=== PATIENT | male | born 1955 | race Caucasian/White ===

== ENCOUNTER 2017-04-04 07:17 | Emergency (ER) | payer BC ==
[2017-04-04 07:31] VITALS: BP 151/77
--- NOTE | 2017-04-04 08:09 | UC ---
Skin Complaint HPI - HPI Summary HPI Summary: INSECT BITE TO LEFT OUTER ANKLE 4 DAYS AGO. 2 DAYS AGO BECAME RED AND ITCHY. NOT PAINFUL. NO DRAINAGE. - History of Current Complaint Chief Complaint: [facility] Time Seen by Provider: 04/04/17 07:47 Stated Complaint: BUG BITE Hx Obtained From: Patient Onset/Duration: Gradual Onset, Lasting Days, Still Present Skin Exposure Onset/Duration: Days Ago Timing: Constant Onset Severity: Mild Current Severity: Mild Pain Intensity: 0 Pain Scale Used: 0-10 Numeric Location: Other - LEFT ANKLE Character: Pruritus, Redness Aggravating: Touch Alleviating: Nothing Associated Signs & Symptoms: Negative: Fever, Drainage, Tenderness, Red Streaks Related History: Insect Bite/Sting - Allergy/Home Medications Allergies/Adverse Reactions: Allergies Allergy/AdvReac Type Severity Reaction Status Date / Time No Known Allergies Allergy Verified 08/18/15 06:41 Review of Systems Constitutional: Negative Skin: Other - REDNESS Respiratory: Negative Cardiovascular: Negative Gastrointestinal: Negative All Other Systems Reviewed And Are Negative: Yes PMH/Surg Hx/FS Hx/Imm Hx Cardiovascular History: Hypertension - 2 - Surgical History Surgical History: Yes Surgery Procedure, Year, and Place: Gastric Sleeve, 10/2015. Right knee surgery X2 1994. LAP NGUYEN 2010 [facility]. TONSILLECTOMY A CHILD. Right eye surgery- for drainage. - Family History Known Family History: Positive: Hypertension - Social History Alcohol Use: Rare Substance Use Type: None Smoking Status (MU): Never Smoked Tobacco - Immunization History Most Recent Tetanus Shot: thinks is up to date Physical Exam Triage Information Reviewed: Yes Appearance: Well-Appearing, No Pain Distress, Well-Nourished Vital Signs: Initial Vital Signs Temp 97.8 F 04/04/17 07:25 Pulse 58 04/04/17 07:25 Resp 18 04/04/17 07:25 BP 151/77 04/04/17 07:25 Pulse Ox 99 04/04/17 07:25 Vital Signs Reviewed: Yes Eyes: Positive: Conjunctiva Clear ENT: Positive: Hearing grossly normal Neck: Positive: Supple Respiratory: Positive: No respiratory distress, No accessory muscle use Cardiovascular: Positive: Pulses Normal Abdomen Description: Positive: Soft Musculoskeletal: Positive: No Edema Neurological: Positive: Alert Psychological: Positive: Age Appropriate Behavior Skin: Positive: Other - 3CM X 3.5CM AREA OF ERYTHEMA LEFT LATERAL ANKLE WITH CENTRAL PUNCTUM. NO DRAINAGE. NOT TENDER. Course/Dx - Diagnoses Provider Diagnoses: LOCAL ALLERGIC REACTION TO INSECT BITE - LEFT ANKLE Discharge - Discharge Plan Condition: Stable Disposition: HOME Patient Education Materials: General Allergic Reaction (ED) Referrals: Arian COLLINS,Jose Silva [Primary Care Provider] - If Needed Additional Instructions: AT PRESENT NO INDICATION OF INFECTION. LOOKS MORE LIKE A LOCAL ALLERGIC REACTION FROM THE INSECT BITE. OKAY TO USE TOPICAL OTC HYDROCORTISONE A FEW TIMES A DAY NEEDED FOR ITCHING. CALL ME IF THE REDNESS EXPANDS OR IF IT BECOMES MORE PAINFUL. I AM HERE SUNDAY AND SUNDAY AFTERNOON/EVENING AND LIKELY SUNDAY MORNING. USE DAILY MOISTURIZING LOTION AVOID HOT WATER TAKE OTC ANTIHISTAMINE DAILY (CLARITIN (LORATADINE), ZYRTEC (CETIRIZINE) OR ALY (FEXOFENADINE) IN THE MORNING, BENADRYL AT NIGHT) DO NOT SCRATCH KEEP COOL, CLEAN AND DRY
== END 2017-04-04 08:26 | disposition home or self-care (01) ==
LOC: UCEAST 07:17
DX: T63.481A Toxic effect of venom of other arthropod, accidental (unintentional), initial encounter (principal); L53.0 Toxic erythema
CPT/HCPCS: 99211; G0463

== ENCOUNTER 2018-06-12 06:48 | Day surgery (SDC) | payer BC ==
[~2018-06-12 06:48] MED LIST: Acetaminophen TAB* 325 MG PO PRN; Buffered Lidocaine 0.9% SYRIN* 5 ML/SYR SYRINGE INTRADERM ONE; mitoMYcin PWD* 0.2 MG in Sterile Water for Inj* 1 ML OPHTHALMIC SCH
[2018-06-12] MEDS ORDERED: Proparacaine 0.5% OPHTH.SOL* 15 ML BTL ONE (08:01)
[2018-06-12] MEDS ORDERED: Lidocaine 1%* 5 ML VIAL ONE (08:01)
[2018-06-12] MEDS ORDERED: Povidone Iodine 5% OPTH* 30 ML BTL ONE (08:01)
[2018-06-12] MEDS ORDERED: Neomycin/Polymy/Dex OPTH.SUSP* MAXITROL 0.1% 5 ML ONE (08:01)
[2018-06-12] MEDS ORDERED: Lidocaine 2% EPI 1:200000 MPF*10-20 ML VIAL ONE (08:01)
[2018-06-12] MEDS ORDERED: Midazolam* 1 MG/ML 2 ML VIAL (2 MG) ONE ×2 (08:07→09:06)
[2018-06-12 09:35] VITALS: BP 142/80
--- NOTE | 2018-06-12 13:11 | OP ---
OPERATIVE REPORT: DATE OF OPERATION: 06/12/18 DATE OF : 53 SURGEON: Tristen Caal MD ANESTHESIA: Local MAC. PRE-OP DIAGNOSIS: Uncontrolled glaucoma, right eye. POST-OP DIAGNOSIS: Uncontrolled glaucoma, right eye. OPERATIVE PROCEDURE: Xen implant right eye. COMPLICATIONS: None. DESCRIPTION OF PROCEDURE: The patient was prepped and draped in the usual sterile fashion around the right eye. Lid speculum was placed. Topical 2% lidocaine with epinephrine was placed on the cornea . A paracentesis incision was made at the 10 o'clock position with a green blade. 1% nonpreserved i ntracameral lidocaine was injected in the anterior chamber, then filled with Healon. A 2.2 mm kerato me was used to make a clear corneal incision at the 7 o'clock position. A marking was made 3 mm post erior to the superior limbus and then mitomycin-C 0.2 mg/mL 0.1 mL injected subconjunctivally. A Xen implant was placed at the 1 o'clock position without difficulty and then the anterior chamber was ir rigated with BSS. Wound was checked and found to be water tight. Topical Maxitrol was given. [id number]/[facility] #: [id number]
== END 2018-06-12 09:50 | disposition home or self-care (01) ==
LOC: OREAST 06:48
PROVIDERS: ATTEND Specialist
DX: H40.131 Pigmentary glaucoma, right eye (principal); I10 Essential (primary) hypertension; E11.9 Type 2 diabetes mellitus without complications; G47.33 Obstructive sleep apnea (adult) (pediatric); E66.9 Obesity, unspecified
CPT/HCPCS: A9270-GY; C1725; J2250; J9280

== ENCOUNTER 2019-02-19 12:55 | Observation (INO) | payer BC ==
--- NOTE | 2019-02-19 13:21 | ED ---
HPI Chest Pain - HPI Summary HPI Summary: Pt is a 64 y/o M presenting to the ED brought in by EMS with a chief complaint of chest pain onset this morning around 1100. The pt was pushing a lawnmower up an incline when he had two brief bursts of chest pain in the middle of his chest that did not radiate, lasting 8-12 seconds in total. He called his motor scooter mechanic in [place] who recommended coming into his office for an EKG, but he did not feel comfortable driving all the way back. He came here instead, as he works in [place]. Notable hx includes four cardiac stents placed in September of 2018 that he has been going to cardiac rehab for, HTN, and NIDDM. He was given NTG and ASA by EMS. - History of Current Complaint Chief Complaint: EDChestPainROMI Time Seen by Provider: 02/19/19 13:04 Hx Obtained From: Patient Onset/Duration: Started Hours Ago, Resolved Timing: Intermittent, Lasting Seconds Initial Severity: Moderate Current Severity: None Pain Intensity: 0 Pain Scale Used: 0-10 Numeric Chest Pain Location: Mid Sternal Chest Pain Radiates: No Character: Other: - "bursts" Aggravating Factor(s): Exertion Alleviating Factor(s): Rest Associated Signs and Symptoms: Positive: Chest Pain. Negative: Shortness of Breath - Allergy/Home Medications Allergies/Adverse Reactions: Allergies Allergy/AdvReac Type Severity Reaction Status Date / Time No Known Allergies Allergy Verified 06/12/18 07:03 Home Medications: Home Medications Aspirin EC TAB* [Ecotrin EC Low Dose 81 MG*] 81 mg PO QAM 02/19/19 [History Confirmed 02/19/19] Atorvastatin* [Lipitor*] 40 mg PO QPM 02/19/19 [History Confirmed 02/19/19] Citalopram TAB* [CeleXA TAB*] 20 mg PO QAM 02/19/19 [History Confirmed 02/19/19] Clopidogrel TAB* [Plavix TAB*] 75 mg PO QAM 02/19/19 [History Confirmed 02/19/19 ] Glimepiride (NF) 1 mg PO QAM 02/19/19 [History Confirmed 02/19/19] Losartan TAB* [Cozaar TAB*] 25 mg PO QPM 02/19/19 [History Confirmed 02/19/19] Metoprolol Succinate XL TAB* [Toprol XL TAB*] 25 mg PO QAM 02/19/19 [History Confirmed 02/19/19] amLODIPine TAB* [Norvasc 5 mg TAB*] 5 mg PO QAM 02/19/19 [History Confirmed 06/02] PMH/Surg Hx/FS Hx/Imm Hx Previously Healthy: No Endocrine/Hematology History: Reports: Hx Diabetes Denies: Hx Thyroid Disease Cardiovascular History: Reports: Hx Coronary Artery Disease, Hx Hypertension - WELL CONTROLLED, Other Cardiovascular Problems/Disorders - 4 stents placed 2017 Respiratory History: Reports: Hx Sleep Apnea Denies: Hx Asthma, Hx Chronic Obstructive Pulmonary Disease (COPD) GI History: Denies: Hx Ulcer History: Reports: Hx Kidney Stones - YEARS AGO- NO PROBLEM SINCE Sensory History: Reports: Hx Contacts or Glasses - cheaters for reading, Hx Glaucoma Denies: Hx Cataracts, Hx Hearing Aid Opthamlomology History: Reports: Hx Contacts or Glasses - cheaters for reading, Hx Glaucoma Denies: Hx Cataracts Psychiatric History: Reports: Hx Anxiety, Hx Depression - Cancer History Hx Chemotherapy: No - Surgical History Surgery Procedure, Year, and Place: Gastric Sleeve, 10/2015. Right knee surgery X2 1994. LAP NGUYEN 2009 [facility]. TONSILLECTOMY A CHILD. Right eye surgery- for drainage. Hx Anesthesia Reactions: No Infectious Disease History: No Infectious Disease History: Denies: Hx Clostridium Difficile, Hx Hepatitis, Hx Human Immunodeficiency Virus (HIV), Hx of Known/Suspected MRSA, Hx Shingles, Hx Tuberculosis, Hx Known/ Suspected VRE, Hx Known/Suspected VRSA, History Other Infectious Disease, Traveled Outside the [place] in Last 30 Days - Family History Known Family History: Positive: Hypertension - Social History Alcohol Use: Rare Hx Substance Use: No Substance Use Type: Reports: None Hx Tobacco Use: No Smoking Status (MU): Never Smoked Tobacco Review of Systems Positive: Chest Pain Negative: Shortness Of Breath All Other Systems Reviewed And Are Negative: Yes Physical Exam - Summary Physical Exam Summary: GENERAL: Patient is a well-developed and nourished male who is lying comfortable in the stretcher. Patient is not in any acute respiratory distress. HEAD AND FACE: Normocephalic EYES: PERRLA, EOMI x 2. EARS: Hearing grossly intact. MOUTH: Oropharynx within normal limits. NECK: Supple, trachea is midline, no adenopathy, no JVD, no carotid bruit. CHEST: Symmetric, no tenderness at palpation LUNGS: Clear to auscultation bilaterally. No wheezing or crackles. CVS: Regular rate and rhythm, S1 and S2 present, no murmurs or gallops appreciated. ABDOMEN: Soft, non-tender. Bowel sounds are normal. No abnormal abdominal pulsations. EXTREMITIES: Full ROM in all major joints, no edema, no cyanosis or clubbing. NEURO: Alert and oriented x 3. No acute neurological deficits. Speech is normal and follows commands. SKIN: Dry and warm Triage Information Reviewed: Yes Vital Signs On Initial Exam: Initial Vitals Temp Pulse Resp BP Pulse Ox 98 F 65 18 144/80 100 02/19/19 12:59 02/19/19 12:59 02/19/19 12:59 02/19/19 12:59 02/19/19 12:59 Vital Signs Reviewed: Yes Diagnostics - Vital Signs Vital Signs Temp Pulse Resp BP Pulse Ox 02/19/19 12:59 98 F 65 18 144/80 100 - Laboratory Result Diagrams: 02/20/19 06:00 02/20/19 06:00 Lab Statement: Any lab studies that have been ordered have been reviewed, and results considered in the medical decision making process. - EKG 1303 Cardiac Rate: Bradycardia - 49bpm EKG Rhythm: Sinus Bradycardia ST Segment: Normal Ectopy: None Summary of EKG Findings: EKG at 1303 shows sinus bradycardia at 49bpm with no ischemic changes. Chest Pain Course/Dx - Course Course Of Treatment: Pt is a 64 y/o M presenting to the ED brought in by EMS for exertional chest pain lasting about 8-12 seconds in the mid-sternal area that did not radiate and is described as bursts. He denies current CP or SOB. Notable hx includes four cardiac stents placed in September of 2018 that he has been going to cardiac rehab for, HTN, and NIDDM. He was given NTG and ASA by EMS. EKG at 1303 shows sinus bradycardia at 49bpm with no ischemic changes. At 1348, I spoke with Dr. Buckley who will be accepting the pt to [facility] with a dx of chest pain. The pt is stable and agreeable with this plan. - Diagnoses Provider Diagnoses: Chest pain Discharge - Sign-Out/Discharge Documenting (check all that apply): Patient Departure - Discharge Plan Condition: Stable Disposition: ADMITTED TO [facility] - Billing Disposition and Condition Condition: STABLE Disposition: Admitted to [facility] - Attestation Statements Document Initiated by Jarrod: Yes Documenting Scribe: Mony Jaimes Provider For Whom Jarrod is Documenting (Include Credential): Sherrell Katz MD. Scribe Attestation: IMony, scribed for Sherrell Katz MD. on 02/20/19 at 1117. Scribe Documentation Reviewed: Yes Provider Attestation: The documentation as recorded by the Mony rodrigues accurately reflects the service I personally performed and the decisions made by me, Tammie Katz MD. Status of Scribe Document: Viewed Consult Consult: [id number] - I spoke with Dr. Buckley who will be admitting the pt to [facility] with a dx of chest pain.
--- OUTSIDE RECORDS SUMMARY | 2019-02-19 13:22 | XMS REPORT | Continuity of Care Document ---
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 Date Identification Numbers Payment Provider Subscriber Effective: 2011 Policy Number: [id number] [facility] Ronak Crocker Group Number: [id number] [address] [address] Group Name: [facility] [place] [address] PayID: [id number] Advance Directives Description No Information Available Problems Active Problems Provider Date Benign essential hypertension Jose Don MD Onset: 03/29/2011 Type 2 diabetes mellitus Jose Don MD Onset: 05/26/2014 Contusion of trunk Jose Don MD Onset: 05/26/2014 Essential hypertension Jose Don MD Onset: 10/25/2015 Impending infarction Bayron Ashley MD Onset: 08/28/2018 Pure hypercholesterolemia Bayron Ashley MD Onset: 08/28/2018 Carotid artery occlusion Bayron Ashley MD Onset: 08/28/2018 Obstructive sleep apnea syndrome Bayron Ashley MD Onset: 08/28/2018 Body mass index 30+ - obesity Bayron Ashley MD Onset: 08/28/2018 Hypertensive heart disease without heart Bayron Ashley MD Onset: 09/17/2018 failure 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/04/2018 coronary artery without angina pectoris Family history of ischemic heart disease and Vita Torrez NP Onset: 10/04 other diseases of the circulatory system Chest pain Vita Torrez NP Onset: 10/04/2018 Patient post percutaneous transluminal Vita Torrez NP Onset: 10/04/2018 coronary angioplasty Family History Date Family Member(s) Observation Comments Father 192 as of 01/22/2009 Father MA Father Hypertension Mother 1925 as of 01/22/2009 Mother Hypertension Mother Stroke Siblings Siblings: one brother and one sister in good high bp health, brother may have Social History Type Date Description Comments Sex Unknown 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 PHYSICAL THERAPIST AIDE Tablets Atorvastatin Calcium 1 by mouth every 30tabs Vita Torrez, 10/04/2018 40mg night PHYSICAL THERAPIST AIDE Tablets Clopidogrel Bisulfate one tablet daily. 30tabs Vita Torrez, 2017 PHYSICAL THERAPIST AIDE 75mg Tablets Amlodipine Besylate 1 by mouth every 30tabs Bayron Ashley, 09/17/2018 5mg day Tablets Adult Aspirin Regimen Bayron Ashley, 08/28/2018 81mg Tablets Metoprolol Succinate 1 by mouth every 30tabs Bayron Ashley, 08/28/2018 ER day MD 25mg Tablets ER 24HR Nitroglycerin 1 sl as needed 25tabs Bayron Ashley, 08/28/2018 0.4mg chest pain may MD Tablets Sub repeat every 5 minutes x 2. if no relief then go to er Glimepiride take 1 tablet by 30tabs Arian, 08/20/2018 1mg Tablets mouth once daily MD Jose Bipap bipap 19/03tga2p 1units G47.33 Josias Skelton, 08/12/2017 Device with MD [place] heated humidity and related supplies, ellie 99mos Citalopram take 1 tablet by 90tabs F33.1 Arian, 01/22/2008 Hydrobromide mouth once daily MD Jose 20mg Tablets Combigan Unknown 0.2-0.5% Solution History Medications Oseltamivir one by mouth every 10caps J09.x2 Arian 12/30/2018 - Phosphate day MD Jose 01/04/2019 75mg Capsules Atorvastatin 1 by mouth every day 30tabs Bayron Ashley, 08/28/2018 - Calcium 10/04/2018 20mg Tablets Bipap New Bipap 15/92suy0i 1units G47.33 Josias Skelton, 06/14/2017 - Device with modejustyn heated 05/15/2018 humidity and related supplies, ellie 99mos Dymista 1 spray each nostril 69gm Josias Skelton 04/10/2017 - twice a day 12/05/2018 137-50mcg/Act Suspension Lisinopril 1 by mouth every day 30tabs I10 Arian 12/28/2015 - 5mg MD Jose 03/07/2016 Tablets Lisinopril 1 by mouth every day 30tabs I10 Arian 11/26/2015 - 10mg MD Jose 12/28/2015 Tablets Zostavax .5 milliliters sub 1units V07.2 Arian 10/25/2015 - every MD Jose 10/24/2015 41406Lcj/0.65ML Solution Rec Azopt one drop once a day Arian 10/25/2015 - 1% Suspension in rt eye MD Jose 12/05/2018 Diamox Sequels 1 by mouth 4 times a Arian 08/16/2015 - day MD Jose 10/15/2015 500mg Caps ER 12HR Zostavax .5 milliliters sub 1units V07.2 Arian 02/02/2015 - every MD Jose 08/15/2015 61118Cea/0.65ML Solution Rec Metformin HCL ER 1 po qd 30tabs Arian 2014 - MD Jose 12/13/2013 500mg Tablets ER 24HR Bipap bipap 15/22juq22 G47.33 Josias Skelton, 07/23/2012 - with heated 03/20/2017 humidification and related supplies. patient did not tolerate cpap. ellie:99mos Bactrim DS 1 po bid 20tabs 682.6 Arian 07/21/2011 - MD Jose 07/31/2011 800-160mg Tablets Doxycycline Hyclate 1 po bid with food 20caps 682.6 Arian, 07/17/2011 - MD Jose 07/21/2011 100mg Capsules Keflex 1 po tid 30caps 706.2 Arian, 04/21/2011 - 500mg MD Jose 05/01/2011 Capsules Lisinopril take 1 tablet by 90tabs I10 Arian 04/21/2011 - 20mg mouth once daily MD Jose 11/26/2015 Tablets Naproxen 1 po bid prn with 60tabs 841.9 Arian 05/06/2010 - 500mg food MD Jose 06/05/2010 Tablets Please Obtain Please obtain 1units 327.23 Nely Peterson, 05/28/2009 - Compliance Data patients Compliance PHYSICAL THERAPIST AIDE 09/14/2009 Data, to evaluate for possible leak issues. 780.50 Lisinopril Take 1 Tablet 90tabs 401.1 Arian 01/16/2007 - 10mg By Mouth Once MD Jose 04/21/2011 Tablets Daily Norflex 1 po qhs 30tabs Arian 08/02/2003 - 100mg Tablets MD Jose 10/15/2006 Tylenol W/Codeine One To Two 20tabs 786.2 Arian, 11/20/2002 - #3 Q4-6H prn With MD Edwina 11/28/2002 Tablets Small Snack To Lessen Nausea Naprosyn 1 po bid with 30units 847.2 Arian 06/18/2002 - 500mg food prn pain MD Jose 10/15/2006 Norflex 1 bid prn 20units 847.2 Arian 06/18/2002 - Muscle Relaxer MD Jose 07/08/2002 Lamisil Tincture 3 Crushed In 1 1units 681.11 Arian 06/18/2002 - 0Z Fungoid MD Jose 09/14/2009 250mg Tincture;2 Drops To Nail bid Latanoprost 1 drop in each Unknown - 0.005% eye at bedtime 12/05/2018 Solution Immunizations CPT Code Status Date Vaccine Lot # [id number] Given 08/09/2018 Influenza Vac, Quadrivalent, Split, 0.5mL Dosage, [id number] Im Use [id number] Given 12/23/2015 Zoster (Zostavax) 41657 Given 08/16/2015 Influenza Vac, Quadrivalent, Split, 0.5mL Dosage, [id number] Im Use 59510 Given 02/02/2015 Tdap (Boostrix)tetanus, diptheria toxoid & [id number] acellular pertussis Vital Signs Date Vital Result Comment 02/11/2019 8:08am Weight 264.00 lb Heart Rate 63 /min BP Systolic 132 mmHg BP Diastolic 60 mmHg Height 72.5 inches 6'0.50" BMI (Body Mass Index) 35.3 kg/m2 12/30/2018 11:34am Weight 270.00 lb BP Systolic 118 mmHg BP Diastolic 60 mmHg Height 73 inches 6'1" BMI (Body Mass Index) 35.6 kg/m2 12/05/2018 2:06pm Weight 278.00 lb Heart Rate 68 /min BP Systolic 130 mmHg BP Diastolic 62 mmHg Height 73 inches 6'1" BMI (Body Mass Index) 36.7 kg/m2 10/29/2018 2:44pm Body Temperature 96.8 F Weight 296.00 lb Heart Rate 66 /min BP Systolic 142 mmHg BP Diastolic 80 mmHg Height 73 inches 6'1" O2 % BldC Oximetry 97 % BMI (Body Mass Index) 39.0 kg/m2 10/04/2018 9:30am Weight 292.00 lb Heart Rate 64 /min reg BP Systolic 146 mmHg BP Diastolic 86 mmHg BP Systolic Recheck 132 mmHg BP Diastolic Recheck 76 mmHg Respiratory Rate 16 /min Height 73 inches 6'1" BMI (Body Mass Index) 38.5 kg/m2 09/17/2018 7:29am Weight 296.00 lb Heart Rate 80 /min BP Systolic 178 mmHg BP Diastolic 88 mmHg BP Systolic Recheck 144 mmHg BP Diastolic Recheck 84 mmHg Height 73 inches 6'1" BMI (Body Mass Index) 39.0 kg/m2 08/28/2018 1:05pm Weight 294.00 lb Heart Rate 76 /min BP Systolic 144 mmHg BP Diastolic 78 mmHg Height 73 inches 6'1" BMI (Body Mass Index) 38.8 kg/m2 08/09/2018 10:41am Weight 293.00 lb BP Systolic 126 mmHg BP Diastolic 70 mmHg Height 73 inches 6'1" BMI (Body Mass Index) 38.7 kg/m2 05/31/2018 7:55am Weight 290.00 lb BP Systolic 140 mmHg BP Diastolic 86 mmHg Height 73 inches 6'1" BMI (Body Mass Index) 38.3 kg/m2 04/30/2018 2:15pm Body Temperature 96.7 F Weight 293.00 lb Heart Rate 76 /min BP Systolic 128 mmHg BP Diastolic 68 mmHg Height 73 inches 6'1" O2 % BldC Oximetry 95 % BMI (Body Mass Index) 38.7 kg/m2 09/25/2017 3:01pm Body Temperature 97.1 F Weight 285.00 lb Heart Rate 110 /min BP Systolic 164 mmHg BP Diastolic 84 mmHg Height 73 inches 6'1" O2 % BldC Oximetry 95 % BMI (Body Mass Index) 37.6 kg/m2 08/14/2017 12:32pm Body Temperature 97.7 F Weight 292.00 lb Heart Rate 82 /min BP Systolic 156 mmHg BP Diastolic 70 mmHg Height 73 inches 6'1" O2 % BldC Oximetry 95 % BMI (Body Mass Index) 38.5 kg/m2 06/14/2017 9:08am Weight 290.00 lb Height 73 inches 6'1" BMI (Body Mass Index) 38.3 kg/m2 04/10/2017 2:04pm Body Temperature 98.3 F Weight 279.00 lb Heart Rate 85 /min BP Systolic 150 mmHg BP Diastolic 80 mmHg Height 72 inches 6'0" O2 % BldC Oximetry 98 % BMI (Body Mass Index) 37.8 kg/m2 03/20/2017 7:48am Weight 275.00 lb BP Systolic 130 mmHg BP Diastolic 74 mmHg Height 72 inches 6'0" BMI (Body Mass Index) 37.3 kg/m2 02/06/2017 10:30am Weight 275.00 lb BP Systolic 118 mmHg BP Diastolic 60 mmHg Height 72 inches 6'0" BMI (Body Mass Index) 37.3 kg/m2 04/11/2016 11:56am Weight 235.00 lb BP Systolic 116 mmHg BP Diastolic 62 mmHg Height 72 inches 6'0" BMI (Body Mass Index) 31.9 kg/m2 03/14/2016 11:46am Weight 232.00 lb BP Systolic 112 mmHg BP Diastolic 60 mmHg Height 72 inches 6'0" BMI (Body Mass Index) 31.5 kg/m2 01/11/2016 1:40pm Weight 247.00 lb BP Systolic 112 mmHg BP Diastolic 70 mmHg Height 72 inches 6'0" BMI (Body Mass Index) 33.5 kg/m2 12/28/2015 11:35am Weight 273.00 lb BP Systolic 108 mmHg BP Diastolic 58 mmHg Height 72 inches 6'0" BMI (Body Mass Index) 37.0 kg/m2 11/26/2015 11:26am Weight 273.00 lb BP Systolic 112 mmHg BP Diastolic 60 mmHg Height 72 inches 6'0" BMI (Body Mass Index) 37.0 kg/m2 10/25/2015 1:59pm Weight 305.00 lb BP Systolic 138 mmHg BP Diastolic 60 mmHg Height 72 inches 6'0" BMI (Body Mass Index) 41.4 kg/m2 08/16/2015 1:08pm Weight 291.00 lb BP Systolic 116 mmHg BP Diastolic 60 mmHg Height 72 inches 6'0" BMI (Body Mass Index) 39.5 kg/m2 04/06/2015 11:07am Weight 321.00 lb BP Systolic 118 mmHg BP Diastolic 78 mmHg Height 72 inches 6'0" BMI (Body Mass Index) 43.5 kg/m2 02/02/2015 8:30am Weight 315.00 lb BP Systolic 128 mmHg BP Diastolic 60 mmHg Height 72 inches 6'0" BMI (Body Mass Index) 42.7 kg/m2 05/26/2014 8:49am Weight 271.00 lb BP Systolic 112 mmHg BP Diastolic 60 mmHg Height 72 inches 6'0" BMI (Body Mass Index) 36.8 kg/m2 04/28/2014 3:01pm Weight 269.00 lb BP Systolic 110 mmHg BP Diastolic 50 mmHg Height 72 inches 6'0" BMI (Body Mass Index) 36.5 kg/m2 01/27/2014 9:05am Weight 316.00 lb BP Systolic 128 mmHg BP Diastolic 60 mmHg Height 72 inches 6'0" BMI (Body Mass Index) 42.9 kg/m2 08/14/2012 9:18am Body Temperature 97.7 F Weight 292.00 lb Heart Rate 72 /min BP Systolic 124 mmHg BP Diastolic 78 mmHg Height 72 inches 6'0" O2 % BldC Oximetry 99 % BMI (Body Mass Index) 39.6 kg/m2 07/03/2012 9:30am Weight 314.00 lb BP Systolic 128 mmHg BP Diastolic 60 mmHg Height 72.25 inches 6'0.25" BMI (Body Mass Index) 42.3 kg/m2 07/28/2011 11:12am Weight 316.00 lb LG Cuff BP Systolic 118 mmHg BP Diastolic 64 mmHg Height 72.25 inches 6'0.25" BMI (Body Mass Index) 42.6 kg/m2 07/21/2011 10:49am Weight 321.00 lb BP Systolic 112 mmHg BP Diastolic 60 mmHg Height 72.25 inches 6'0.25" BMI (Body Mass Index) 43.2 kg/m2 07/17/2011 11:48am Weight 321.00 lb BP Systolic 128 mmHg BP Diastolic 64 mmHg Height 72.25 inches 6'0.25" BMI (Body Mass Index) 43.2 kg/m2 07/11/2011 2:47pm Weight 321.00 lb BP Systolic 144 mmHg BP Diastolic 60 mmHg Height 72.25 inches 6'0.25" BMI (Body Mass Index) 43.2 kg/m2 05/12/2011 2:52pm Weight 314.00 lb BP Systolic 114 mmHg BP Diastolic 60 mmHg Height 72.25 inches 6'0.25" BMI (Body Mass Index) 42.3 kg/m2 04/21/2011 1:55pm Weight 311.00 lb BP Systolic 142 mmHg BP Diastolic 60 mmHg Height 72.25 inches 6'0.25" BMI (Body Mass Index) 41.9 kg/m2 03/29/2011 8:50am Weight 314.00 lb BP Systolic 140 mmHg BP Diastolic 60 mmHg Height 72.25 inches 6'0.25" BMI (Body Mass Index) 42.3 kg/m2 01/06/2011 4:34pm Weight 325.00 lb BP Systolic 138 mmHg BP Diastolic 60 mmHg Height 72.25 inches 6'0.25" BMI (Body Mass Index) 43.8 kg/m2 05/06/2010 4:39pm BP Systolic 142 mmHg BP Diastolic 76 mmHg 02/02/2010 9:15am Weight 317.50 lb BP Systolic 132 mmHg BP Diastolic 70 mmHg Height 72.25 inches 6'0.25" BMI (Body Mass Index) 42.8 kg/m2 Urine Dipstick - Blood NEGATIVE Urine Dipstick - Protein NEGATIVE Urine Dipstick - Glucose NEGATIVE 09/27/2009 3:05pm Weight 309.50 lb BP Systolic 110 mmHg BP Diastolic 60 mmHg Height 72 inches 6'0" BMI (Body Mass Index) 42.0 kg/m2 Urine Dipstick - Blood NEGATIVE Urine Dipstick - Protein NEGATIVE Urine Dipstick - Glucose NEGATIVE 09/14/2009 3:05pm BP Systolic 140 mmHg BP Diastolic 64 mmHg 05/28/2009 7:59am Body Temperature 97.4 F Heart Rate 71 /min BP Systolic 133 mmHg BP Diastolic 93 mmHg O2 % BldC Oximetry 99 % 01/22/2009 9:03am Weight 298.00 lb BP Systolic 124 mmHg BP Diastolic 70 mmHg Urine Dipstick - Blood NEGATIVE Urine Dipstick - Protein NEGATIVE Urine Dipstick - Glucose NEGATIVE 03/06/2008 7:54am Weight 278.00 lb BP Systolic 150 mmHg BP Diastolic 70 mmHg Height 72 inches 6'0" BMI (Body Mass Index) 37.7 kg/m2 01/22/2008 9:03am Weight 304.50 lb BP Systolic 156 mmHg BP Diastolic 84 mmHg Height 72 inches 6'0" BMI (Body Mass Index) 41.3 kg/m2 Urine Dipstick - Blood NEGATIVE Urine Dipstick - Protein NEGATIVE Urine Dipstick - Glucose NEGATIVE 02/13/2007 2:49pm BP Systolic 146 mmHg BP Diastolic 60 mmHg BP Systolic Recheck 130 mmHg BP Diastolic Recheck 70 mmHg Height 72.25 inches 6'0.25" 01/16/2007 7:46am Weight 279.00 lb BP Systolic 162 mmHg BP Diastolic 86 mmHg Height 72.25 inches 6'0.25" BMI (Body Mass Index) 37.6 kg/m2 Urine Dipstick - Blood NEGATIVE Urine Dipstick - Protein NEGATIVE Urine Dipstick - Glucose NEGATIVE 10/31/2006 9:55am Weight 282.00 lb BP Systolic 150 mmHg BP Diastolic 84 mmHg BP Systolic Recheck 144 mmHg BP Diastolic Recheck 84 mmHg Height 72.25 inches 6'0.25" BMI (Body Mass Index) 38.0 kg/m2 05/16/2006 3:51pm BP Systolic 150 mmHg BP Diastolic 70 mmHg Height 72.25 inches 6'0.25" 12/21/2004 8:25am Weight 270.50 lb BP Systolic 142 mmHg LG. Cuff BP Diastolic 70 mmHg LG. Cuff Height 72.25 inches 6'0.25" BMI (Body Mass Index) 36.4 kg/m2 Urine Dipstick - Blood NEGATIVE Urine Dipstick - Protein NEGATIVE Urine Dipstick - Glucose NEGATIVE 12/13/2004 3:05pm Heart Rate 76 /min BP Systolic 152 mmHg Appears Irreg. BP Diastolic 74 mmHg Appears Irreg. 09/14/2003 1:20pm Weight 284.00 lb BP Systolic 140 mmHg BP Diastolic 74 mmHg 08/28/2003 8:50am BP Systolic 148 mmHg LG. Cuff BP Diastolic 82 mmHg LG. Cuff 08/14/2003 11:01am BP Systolic 144 mmHg LG. Cuff BP Diastolic 82 mmHg LG. Cuff 07/13/2003 1:39pm BP Systolic 140 mmHg LG Cuff BP Diastolic 70 mmHg LG Cuff 11/20/2002 5:26pm Body Temperature 97.4 F BP Systolic 160 mmHg LG. Cuff BP Diastolic 70 mmHg LG. Cuff BP Systolic Recheck 150 mmHg Same BP Reading On Both Arms BP Diastolic Recheck 70 mmHg Same BP Reading On Both Arms 06/18/2002 2:23pm BP Systolic 166 mmHg LG. Cuff BP Diastolic 70 mmHg LG. Cuff 04/10/2002 4:22pm Body Temperature 98.3 F BP Systolic 162 mmHg LG. Cuff BP Diastolic 80 mmHg LG. Cuff BP Systolic Recheck 126 mmHg BP Diastolic Recheck 82 mmHg Results Test Date Facility Test Result H/L Range Note Laboratory test 02/11/2019 [facility] Hemoglobin A1c <pending> finding Laboratory test 12/30/2018 Done [facility] 1 Rapid Flu POSITIVE A finding Test (In House) Basic Metabolic 09/17/2018 [facility] Sodium 139 mmol/L 136-145 Panel [phone] Potassium 4.4 mmol/L 3.5-5.2 Chloride 101 mmol/L 100-108 Co2 30 mmol/L 21-32 Glucose 91 mg/dL 70-100 BUN 16 mg/dL 7-21 Creatinine 0.9 mg/dL 0.6-1.3 1 Calcium 9.7 mg/dL 8.5-10.8 GFR >60 CBC W/Auto Differential 09/17/2018 [facility] WBC 7.9 K/uL 4.8-10.8 [phone] RBC 5.26 M/uL 4.60-6.20 Hemoglobin 15.6 gm/dL 13.5-18.0 Hematocrit 45.7 % 41.0-53.0 MCV 86.8 fL 80.0-100.0 MCHC 34.2 % 30.0-36.5 MCH 29.7 pg 27.0-34.0 RDW 12.2 % 11.0-15.0 Platelet 204 K/uL 130-450 MPV 6.5 fL 6.0-12.0 NE% 65 % 37-80 Ly% 23 % 10-50 Mo% 9 % 0-12 Eo% 3 % <=8 Ba% 0 % <=3 NE# 5.1 K/uL 1.8-8.6 Lymph# 1.8 K/uL 0.5-5.0 [place]# 0.7 K/uL 0.0-1.3 Eos# 0.2 K/uL 0.0-0.9 Baso# 0.0 K/ul 0.0-0.3 Laboratory test finding 08/09/2018 [facility] PSA 0.420 ng/mL 0.000-4.000 2 CBC with Auto Diff-fcmg 08/09/2018 [facility] WBC 7.3 K/uL 4.1-11.0 RBC 5.29 M/uL 4.60-6.10 Hemoglobin 15.7 gm/dL 13.5-18.0 Hematocrit 45.3 % 41.0-53.0 MCV 85.5 fL 80.0-97.0 MCH 29.6 pg 27.0-32.0 MCHC 34.6 g/dL 32.0-36.0 RDW 13.9 % 11.5-14.5 PLT Count 185 K/ul 140-400 MPV 7.5 FL 7.1-10.7 Neutrophil 66.8 % 35.0-75.0 Lymphocyte 19.3 % 16.0-52.0 Monocyte 11.5 % High 2.0-10.0 Eosinophil 1.9 % 0.0-5.0 Basophil 0.5 % 0.0-4.0 Abs Neutrophils 4.9 K/uL 2.1-8.0 Abs Lymphocytes 1.4 K/uL 0.8-5.5 Abs Monocytes 0.8 K/uL 0.1-1.0 Abs Eosinophils 0.1 K/uL 0.0-0.5 Abs Basophils 0.0 K/uL 0.0-0.3 Lipid 08/09/2018 [facility] Cholesterol 174 mg/dL 50-199 Triglycerides 134 mg/dL 30-200 HDL 37 mg/dL 29-71 3 Chol/ HDL Ratio 4.7 ratio 4.0-6.7 VLDL 27 mg/dL 2-29 LDL (Calc) 110 mg/dL High 20-99 4 Hemoglobin A1c 08/09/2018 [facility] Hemoglobin A1c 6.3 % High 4.1-5.9 Estimated Average Glucose Calc 134 mg/dL 71-140 Comprehensive Met Panel-FCMG 08/09/2018 [facility] Sodium 142 mmol/L 135- 146 5 Potassium 5.1 mmol/L 3.5-5.2 Chloride# 102 mmol/L 97-110 6 Carbon Dioxide 33 mmol/L 24-34 Glucose 100 mg/dL 70-105 BUN 13 mg/dL 6-26 Creatinine 0.9 mg/dL 0.5-1.4 Calcium 9.6 mg/dL 8.5-10.2 Total Protein 6.6 g/dL 6.0-8.0 Albumin 4.6 g/dL 3.6-4.9 Globulin 2.0 g/dL 2.0-3.5 A/G Ratio 2.3 Ratio High 1.0-2.2 Total Bilirubin 1.1 mg/dL 0.1-1.3 Alkaline Phosphatase 86 U/L 24-140 Alt 43 U/L High 3-42 Ast 26 U/L 8-42 Annelise Egfr >60 >60 7 Non Annelise Egfr >60 >60 8 Anion Gap 7 mmol/L 5-15 9 CBC with Auto Diff-fcmg 05/31/2018 [facility] WBC 6.1 K/uL 4.1-11.0 RBC 5.34 M/uL 4.60-6.10 Hemoglobin 15.3 gm/dL 13.5-18.0 Hematocrit 45.9 % 41.0-53.0 MCV 85.8 fL 80.0-97.0 MCH 28.7 pg 27.0-32.0 MCHC 33.5 g/dL 32.0-36.0 RDW 14.3 % 11.5-14.5 PLT Count 202 K/ul 140-400 MPV 7.3 FL 7.1-10.7 Neutrophil 62.1 % 35.0-75.0 Lymphocyte 26.2 % 16.0-52.0 Monocyte 8.6 % 2.0-10.0 Eosinophil 2.1 % 0.0-5.0 Basophil 1.0 % 0.0-4.0 Abs Neutrophils 3.8 K/uL 2.1-8.0 Abs Lymphocytes 1.6 K/uL 0.8-5.5 Abs Monocytes 0.5 K/uL 0.1-1.0 Abs Eosinophils 0.1 K/uL 0.0-0.5 Abs Basophils 0.1 K/uL 0.0-0.3 Comprehensive Met Panel-FCMG 05/31/2018 [facility] Sodium 141 mmol/L 135- 146 10 Potassium 4.4 mmol/L 3.5-5.2 Chloride# 102 mmol/L 97-110 11 Carbon Dioxide 28 mmol/L 24-34 Glucose 112 mg/dL High 70-105 BUN 18 mg/dL 6-26 Creatinine 1.0 mg/dL 0.5-1.4 Calcium 9.8 mg/dL 8.5-10.2 Total Protein 7.0 g/dL 6.0-8.0 Albumin 4.7 g/dL 3.6-4.9 Globulin 2.3 g/dL 2.0-3.5 A/G Ratio 2.0 Ratio 1.0-2.2 Total Bilirubin 0.9 mg/dL 0.1-1.3 Alkaline Phosphatase 89 U/L 24-140 Alt 35 U/L 3-42 Ast 23 U/L 8-42 Annelise Egfr >60 >60 12 Non Annelise Egfr >60 >60 13 Anion Gap 11 mmol/L 5-15 14 Hemoglobin A1c 05/31/2018 [facility] Hemoglobin A1c 6.3 % High 4.1-5.9 Estimated Average Glucose Calc 134 mg/dL 71-140 Lipid 05/31/2018 [facility] Cholesterol 176 mg/dL 50-199 Triglycerides 127 mg/dL 30-200 HDL 42 mg/dL 29-71 15 Chol/ HDL Ratio 4.2 ratio 4.0-6.7 VLDL 25 mg/dL 2-29 LDL (Calc) 108 mg/dL High 20-99 16 Order 07/03/2017 Other Sleep Study 0p [phone] Laboratory test 03/20/2017 [facility] PSA 0.500 ng/mL 0.000-4. 17 finding 000 Comprehensive 03/20/2017 [facility] Sodium 143 mmol/L 135-146 18 Metabolic (CMP) Potassium 4.5 mmol/L 3.5-5.2 Chloride# 103 mmol/L 97-110 19 Carbon Dioxide 32 mmol/L 24-34 Glucose 114 mg/dL High 70-105 BUN 16 mg/dL 6-26 Creatinine 0.9 mg/dL 0.5-1.4 Calcium 9.8 mg/dL 8.5-10.2 Total Protein 6.5 g/dL 6.0-8.0 Albumin 4.7 g/dL 3.6-4.9 Globulin 1.8 g/dL Low 2.0-3.5 A/G Ratio 2.6 Ratio High 1.0-2.2 Total Bilirubin 0.8 mg/dL 0.1-1.3 Alkaline Phosphatase 100 U/L 24-140 Alt 22 U/L 3-42 Ast 17 U/L 8-42 Annelise Egfr >60 >60 20 Non Annelise Egfr >60 >60 21 Anion Gap 13 mmol/L 7-16 22 Comprehensive Metabolic (CMP) 02/06/2017 [facility] Sodium 140 mmol/L 135- 146 23 Potassium 5.7 No visible h <SEE NOTE> mmol/L High 3.5-5.2 24 Chloride# 103 mmol/L 97-110 25 Carbon Dioxide 31 mmol/L 24-34 Glucose 106 mg/dL High 70-105 BUN 17 mg/dL 6-26 Creatinine 0.9 mg/dL 0.5-1.4 Calcium 9.9 mg/dL 8.5-10.2 Total Protein 6.5 g/dL 6.0-8.0 Albumin 4.8 g/dL 3.6-4.9 Globulin 1.7 g/dL Low 2.0-3.5 A/G Ratio 2.8 Ratio High 1.0-2.2 Total Bilirubin 0.8 mg/dL 0.1-1.3 Alkaline Phosphatase 94 U/L 24-140 Alt 22 U/L 3-42 Ast 18 U/L 8-42 Annelise Egfr >60 >60 26 Non Annelise Egfr >60 >60 27 Anion Gap 12 mmol/L 7-16 28 Hemoglobin A1c 02/06/2017 [facility] Hemoglobin A1c 5.9 % 4.1-5.9 Estimated Average Glucose Calc 123 71-140 Lipid 02/06/2017 [facility] Cholesterol 170 mg/dL 50-199 Triglycerides 177 mg/dL 30-200 HDL 37 mg/dL 29- 29 Chol/ HDL Ratio 4.6 ratio 4.0-6.7 VLDL 35 mg/dL High 2-29 LDL (Calc) 98 mg/dL 20-99 30 Comprehensive Metabolic (CMP) 03/14/2016 [facility] Sodium 139 mmol/L 134- 142 Potassium 4.9 mmol/L 3.5-5.2 Chloride 103 mmol/L 97-109 Carbon Dioxide 31 mmol/L 24-34 Glucose 89 mg/dL 70-105 BUN 15 mg/dL 6-26 Creatinine 0.9 mg/dL 0.5-1.4 Calcium 10.0 mg/dL 8.5-10.2 Total Protein 6.4 g/dL 6.0-8.0 Albumin 4.4 g/dL 3.6-4.9 Globulin 2.0 g/dL 2.0-3.5 A/G Ratio 2.2 Ratio 1.0-2.2 Total Bilirubin 1.1 mg/dL 0.1-1.3 Alkaline Phosphatase 69 U/L 24-140 Alt 15 U/L 3-42 Ast 14 U/L 8-42 Anion Gap 10 mmol/L 6-14 Annelise Egfr >60 >60 31 Non Annelise Egfr >60 >60 32 Laboratory test finding 03/14/2016 [facility] Hemoglobin A1c 5.3 % 4.1-5.9 Lipid 03/14/2016 [facility] Cholesterol 126 mg/dL 50-199 Triglycerides 65 mg/dL 30-200 HDL 37 mg/dL 29-71 33 Chol/ HDL Ratio 3.4 ratio Low 4.0-6.7 VLDL 13 mg/dL 2-29 LDL (Calc) 76 mg/dL 20-99 34 Laboratory test finding 03/14/2016 [facility] PSA 0.380 ng/mL 0.000-4.000 35 CBC With Auto Diff 12/28/2015 [facility] WBC 6.6 K/uL 4.1-11.0 RBC 4.60 M/uL 4.60-6.10 Hemoglobin 13.4 gm/dL Low 13.5-18.0 Hematocrit 40.8 % Low 41.0-53.0 MCV 88.8 fL 80.0-97.0 MCH 29.1 pg 27.0-32.0 MCHC 32.7 g/dL 32.0-36.0 RDW 14.7 % High 11.5-14.5 PLT Count 183 K/ul 140-400 Neutrophil 69.0 % 35.0-75.0 Lymphocyte 20.4 % 16.0-52.0 Monocyte 8.5 % 2.0-10.0 Eosinophil 1.6 % 0.0-5.0 Basophil 0.5 % 0.0-4.0 Abs Neutrophils 4.6 K/uL 2.1-8.0 Abs Lymphocytes 1.4 K/uL 0.8-5.5 Abmon 0.6 K/uL 0.1-1.0 Abs Eosinophils 0.1 K/uL 0.0-0.5 Abs Basophils 0.0 K/uL 0.0-0.3 Comprehensive Metabolic (CMP) 12/28/2015 [facility] Sodium 137 mmol/L 134- 142 Potassium 4.7 mmol/L 3.5-5.2 Chloride 100 mmol/L 97-109 Carbon Dioxide 28 mmol/L 24-34 Glucose 92 mg/dL 70-105 BUN 16 mg/dL 6-26 Creatinine 0.9 mg/dL 0.5-1.4 Calcium 9.7 mg/dL 8.5-10.2 Total Protein 6.4 g/dL 6.0-8.0 Albumin 4.4 g/dL 3.6-4.9 Globulin 2.0 g/dL 2.0-3.5 A/G Ratio 2.2 Ratio 1.0-2.2 Total Bilirubin 1.0 mg/dL 0.1-1.3 Alkaline Phosphatase 72 U/L 24-140 Alt 18 U/L 3-42 Ast 17 U/L 8-42 Anion Gap 14 mmol/L 6-14 Annelise Egfr >60 >60 36 Non Annelise Egfr >60 >60 37 Lipid 12/28/2015 [facility] Cholesterol 131 mg/dL 50-199 Triglycerides 76 mg/dL 30-200 HDL 35 mg/dL 29-71 38 Chol/ HDL Ratio 3.7 ratio Low 4.0-6.7 VLDL 15 mg/dL 2-29 LDL (Calc) 81 mg/dL 20-99 39 Laboratory test finding 12/28/2015 [facility] Hemoglobin A1c 5.8 % 4.1-5.9 Comprehensive Metabolic 10/25/2015 [facility] Sodium 141 mmol/L 134-142 (CMP) Potassium 4.7 mmol/L 3.5-5.2 Chloride 104 mmol/L 97-109 Carbon Dioxide 31 mmol/L 24-34 Glucose 104 mg/dL 70-105 BUN 18 mg/dL 6-26 Creatinine 1.0 mg/dL 0.5-1.4 Calcium 9.7 mg/dL 8.5-10.2 Total Protein 7.0 g/dL 6.0-8.0 Albumin 4.7 g/dL 3.6-4.9 Globulin 2.3 g/dL 2.0-3.5 A/G Ratio 2.0 Ratio 1.0-2.2 Total Bilirubin 0.8 mg/dL 0.1-1.3 Alkaline Phosphatase 68 U/L 24-140 Alt 41 U/L 3-42 Ast 24 U/L 8-42 Anion Gap 11 mmol/L 6-14 Annelise Egfr >60 >60 40 Non Annelise Egfr >60 >60 41 Laboratory test finding 10/25/2015 [facility] Hemoglobin A1c 6.4 % High 4.1- 5.9 CBC With Auto Diff 10/25/2015 [facility] WBC 11.2 K/uL High 4.1-11.0 RBC 5.12 M/uL 4.60-6.10 Hemoglobin 14.9 gm/dL 13.5-18.0 Hematocrit 44.7 % 41.0-53.0 MCV 87.4 fL 80.0-97.0 MCH 29.0 pg 27.0-32.0 MCHC 33.2 g/dL 32.0-36.0 RDW 14.5 % 11.5-14.5 PLT Count 214 K/ul 140-400 Neutrophil 71.6 % 35.0-75.0 Lymphocyte 19.7 % 16.0-52.0 Monocyte 7.5 % 2.0-10.0 Eosinophil 0.9 % 0.0-5.0 Basophil 0.3 % 0.0-4.0 Abs Neutrophils 8.0 K/uL 2.1-8.0 Abs Lymphocytes 2.2 K/uL 0.8-5.5 Abmon 0.8 K/uL 0.1-1.0 Abs Eosinophils 0.1 K/uL 0.0-0.5 Abs Basophils 0.0 K/uL 0.0-0.3 Comprehensive Metabolic (CMP) 08/16/2015 [facility] Sodium 139 mmol/L 134- 142 Potassium 5.1 mmol/L 3.5-5.2 Chloride 110 mmol/L High 97-109 Carbon Dioxide 23 Electrolytes <SEE NOTE> mmol/L Low 24-34 42 Glucose 96 mg/dL 70-105 BUN 29 mg/dL High 6-26 Creatinine 1.2 mg/dL 0.5-1.4 Calcium 9.5 mg/dL 8.5-10.2 Total Protein 6.8 g/dL 6.0-8.0 Albumin 4.6 g/dL 3.6-4.9 Globulin 2.2 g/dL 2.0-3.5 A/G Ratio 2.1 Ratio 1.0-2.2 Total Bilirubin 0.5 mg/dL 0.1-1.3 Alkaline Phosphatase 80 U/L 24-140 Alt 25 U/L 3-42 Ast 14 U/L 8-42 Anion Gap 11 mmol/L 6-14 Annelise Egfr >60 >60 43 Non Annelise Egfr >60 >60 44 CBC With Auto Diff 08/16/2015 [facility] WBC 8.0 K/uL 4.1-11.0 RBC 5.01 M/uL 4.60-6.10 Hemoglobin 14.6 gm/dL 13.5-18.0 Hematocrit 44.4 % 41.0-53.0 MCV 88.6 fL 80.0-97.0 MCH 29.1 pg 27.0-32.0 MCHC 32.8 g/dL 32.0-36.0 RDW 13.8 % 11.5-14.5 PLT Count 192 K/ul 140-400 Neutrophil 59.4 % 35.0-75.0 Lymphocyte 31.1 % 16.0-52.0 Monocyte 7.0 % 2.0-10.0 Eosinophil 1.9 % 0.0-5.0 Basophil 0.6 % 0.0-4.0 Abs Neutrophils 4.8 K/uL 2.1-8.0 Abs Lymphocytes 2.5 K/uL 0.8-5.5 Abmon 0.6 K/uL 0.1-1.0 Abs Eosinophils 0.1 K/uL 0.0-0.5 Abs Basophils 0.1 K/uL 0.0-0.3 Laboratory test 08/16/2015 [facility] Hemoglobin A1c 6.1 % High 4.1-5.9 finding Laboratory test 02/02/2015 [facility] Hepatitis C Non reactive Non reactive finding Virus Antibody PSA 0.430 ng/mL 0.000-4.000 45 Lipid 02/02/2015 [facility] Cholesterol 188 mg/dL 50-199 Triglycerides 398 mg/dL High 30-200 HDL 27 mg/dL Low 29-71 46 Chol/ HDL Ratio 7.0 ratio High 4.0-6.7 VLDL 80 mg/dL High 2-29 LDL (Calc) 81 mg/dL 20-99 47 Laboratory test finding 02/02/2015 [facility] Hemoglobin A1c 6.5 % High 4.1- 5.9 Comprehensive Metabolic 02/02/2015 [facility] Sodium 138 mmol/L 134-142 (CMP) Potassium 5.3 No visible h <SEE NOTE> mmol/L High 3.5-5.2 48 Chloride 101 mmol/L 97-109 Carbon Dioxide 31 mmol/L 24-34 Glucose 138 mg/dL High 70-105 BUN 21 mg/dL 6-26 Creatinine 1.0 mg/dL 0.5-1.4 Calcium 10.0 mg/dL 8.5-10.2 Total Protein 7.2 g/dL 6.0-8.0 Albumin 4.8 g/dL 3.6-4.9 Globulin 2.4 g/dL 2.0-3.5 A/G Ratio 2.0 Ratio 1.0-2.2 Total Bilirubin 0.6 mg/dL 0.1-1.3 Alkaline Phosphatase 78 U/L 24-140 Alt 45 U/L High 3-42 Ast 24 U/L 8-42 Anion Gap 11 mmol/L 6-14 Annelise Egfr >60 >60 49 Non Annelise Egfr >60 >60 50 Laboratory test finding 02/02/2015 [facility] TSH 0.78 uIU/mL 0.34-5.60 Vitamin B12 389 pg/mL 180-914 Laboratory test 02/02/2015 [facility] Microalbumin, 42.0 ug/ml High 0.0- 20.0 finding Random Urine Comprehensive 05/26/2014 [facility] Sodium 137 mmol/L 134-142 Metabolic (CMP) Potassium 4.4 mmol/L 3.5-5.2 Chloride 102 mmol/L 97-109 Carbon Dioxide 30 mmol/L 24-34 Glucose 101 mg/dL 70-105 BUN 19 mg/dL 6-26 Creatinine 1.0 mg/dL 0.5-1.4 Calcium 9.3 mg/dL 8.5-10.2 Total Protein 6.5 g/dL 6.0-8.0 Albumin 4.4 g/dL 3.6-4.9 Globulin 2.1 g/dL 2.0-3.5 A/G Ratio 2.1 Ratio 1.0-2.2 Total Bilirubin 1.0 mg/dL 0.1-1.3 Alkaline Phosphatase 74 U/L 24-140 Alt 23 U/L 3-42 Ast 15 U/L 8-42 Anion Gap 9 mmol/L 6-14 Annelise Egfr >60 >60 51 Non Annelise Egfr >60 >60 52 Laboratory test finding 05/26/2014 [facility] Hemoglobin A1c 5.5 % 4.1-5.9 Laboratory test finding 01/27/2014 [facility] Hemoglobin A1c 6.6 % High 4.1- 5.9 PSA 0.39 ng/mL 0.00-4.00 53 Lipid 01/27/2014 [facility] Cholesterol 156 mg/dL 50-199 Triglycerides 135 mg/dL 30-200 HDL 32 mg/dL 29-71 54 Chol/ HDL Ratio 4.9 ratio 4.0-6.7 VLDL 27 mg/dL 2-29 LDL (Calc) 97 mg/dL 20-99 55 Comprehensive Metabolic (CMP) 01/27/2014 [facility] Sodium 139 mmol/L 134- 142 Potassium 4.7 mmol/L 3.5-5.2 Chloride 103 mmol/L 97-109 Carbon Dioxide 29 mmol/L 24-34 Glucose 136 mg/dL High 70-105 BUN 18 mg/dL 6-26 Creatinine 1.1 mg/dL 0.5-1.4 Calcium 9.6 mg/dL 8.5-10.2 Total Protein 6.7 g/dL 6.0-8.0 Albumin 4.5 g/dL 3.6-4.9 Globulin 2.2 g/dL 2.0-3.5 A/G Ratio 2.0 Ratio 1.0-2.2 Total Bilirubin 0.9 mg/dL 0.1-1.3 Alkaline Phosphatase 79 U/L 24-140 Alt 59 U/L High 3-42 Ast 29 U/L 8-42 Anion Gap 12 mmol/L 6-14 Annelise Egfr >60 >60 56 Non Annelise Egfr >60 >60 57 CBC With Auto Diff 01/27/2014 [facility] WBC 7.6 K/uL 4.1-11.0 RBC 5.21 M/uL 4.60-6.10 Hemoglobin 15.6 gm/dL 13.5-18.0 Hematocrit 45.4 % 41.0-53.0 MCV 87.0 fL 80.0-97.0 MCH 29.9 pg 27.0-32.0 MCHC 34.4 g/dL 32.0-36.0 RDW 14.1 % 11.5-14.5 PLT Count 192 K/ul 140-400 Neutrophil 63.7 % 35.0-75.0 Lymphocyte 23.6 % 16.0-52.0 Monocyte 9.2 % 2.0-10.0 Eosinophil 3.0 % 0.0-5.0 Basophil 0.5 % 0.0-4.0 Abs Neutrophils 4.9 K/uL 2.1-8.0 Abs Lymphocytes 1.8 K/uL 0.8-5.5 Abmon 0.7 K/uL 0.1-1.0 Abs Eosinophils 0.2 K/uL 0.0-0.5 Abs Basophils 0.0 K/uL 0.0-0.3 Comprehensive Metabolic (CMP) 07/03/2012 [facility] Sodium 139 mmol/L 134- 142 Potassium 4.5 mmol/L 3.5-5.2 Chloride 102 mmol/L 97-109 Carbon Dioxide 32 mmol/L 24-34 Glucose 113 mg/dL High 70-105 BUN 23 mg/dL 6-26 Creatinine 1.0 mg/dL 0.5-1.4 Calcium 9.9 mg/dL 8.5-10.2 Total Protein 7.0 g/dL 6.0-8.0 Albumin 4.8 g/dL 3.6-4.9 Globulin 2.2 g/dL 2.0-3.5 A/G Ratio 2.2 Ratio 1.0-2.2 Total Bilirubin 0.9 mg/dL 0.1-1.3 Alkaline Phosphatase 77 U/L 24-140 Alt 53 U/L High 3-42 Ast 28 U/L 8-42 Anion Gap 10 mmol/L 6-14 Annelise Egfr >60 >60 58 Non Annelise Egfr >60 >60 59 Lipid 07/03/2012 [facility] Cholesterol 172 mg/dL 50-199 Triglycerides 154 mg/dL 30-200 HDL 36 mg/dL 29-71 60 Chol/ HDL Ratio 4.8 ratio 4.0-6.7 VLDL 31 mg/dL High 2-29 LDL (Calc) 105 mg/dL 20-129 61 Laboratory test finding 07/03/2012 [facility] PSA 0.44 ng/mL 0.00-4.00 62 Comprehensive Metabolic (CMP) 03/29/2011 [facility] Sodium 140 mmol/L 135- 144 63 Potassium 5.0 mmol/L 3.6-5.2 Chloride 106 mmol/L 97-110 Carbon Dioxide 28 mmol/L 23-32 Glucose 113 mg/dL High 70-105 BUN 17 mg/dL 6-22 Creatinine 1.0 mg/dL 0.5-1.3 Calcium 9.9 mg/dL 8.6-10.2 BUN/CR 17 ratio 12-20 Total Protein 7.0 g/dL 5.8-7.8 Albumin 4.9 g/dL High 3.5-4.8 Globulin 2.1 g/dL 2.0-3.5 A/G Ratio 2.3 Ratio High 1.0-2.2 Total Bilirubin 1.4 mg/dL High 0.3-1.2 Alkaline Phosphatase 86 U/L 24-140 Alt 67 U/L High 5-45 Ast 34 U/L 12-40 Anion Gap 11 mmol/L 8-16 Non Annelise Egfr >60 >60 64 Annelise Egfr >60 >60 65 Lipid 03/29/2011 [facility] Cholesterol 173 mg/dL 50-199 Triglycerides 114 mg/dL 10-150 HDL 41 mg/dL 29-71 66 Chol/ HDL Ratio 4.2 ratio 4.0-6.7 VLDL 23 mg/dL 2-29 LDL (Calc) 109 mg/dL 20-129 67 Laboratory test 03/29/2011 [facility] PSA 0.47 ng/mL 0.00-4.00 68 finding CMP 02/02/2010 [facility] (Do not Use) Sodium 142 mmol/L 135-144 69 [facility] [place], [place] [id number] [phone] Potassium 4.6 mmol/L 3.6-5.2 Chloride 106 mmol/L 97-110 Carbon Dioxide 30 mmol/L 23-32 Glucose 127 mg/dL High 70-105 BUN 18 mg/dL 6-22 Creatinine 0.9 mg/dL 0.5-1.3 BUN/CR 20 Ratio Calcium 9.6 mg/dL 8.6-10.2 Total Protein 6.7 g/dL 5.8-7.8 Albumin 4.4 g/dL 3.5-4.8 Globulin 2.3 g/dL 2.0-3.5 A/G Ratio 1.9 Ratio 1.0-2.2 Total Bilirubin 0.8 mg/dL 0.3-1.2 70 Alkaline Phosphatase 91 U/L 24-140 Alt 98 U/L High 5-45 Ast 48 U/L High 12-40 Anion Gap 11 mmol/L 8-16 GFR Calculation > 60 mL/min 60-175 71 GFR For > 60 mL/min 60-175 72 Lipid Panel 02/02/2010 [facility] (Do not Use) Cholesterol 185 mg/dL 50 -199 [facility] [place], [place] [id number] [phone] Triglycerides 171 mg/dL High 10-150 HDL 33 mg/dL 29-71 73 Chol/HDL Ratio 5.6 Ratio 4.0-6.7 74 VLDL 34 mg/dL High 2-29 LDL (Calc) 118 mg/dL 20-129 75 Laboratory test 02/02/2010 [facility] (Do not Use) PSA 0.41 ng/ml 0.00- 4.00 76 finding [facility] [place] [address] [phone] CBC With Auto Diff 02/02/2010 [facility] (Do not Use) WBC 5.6 K/ul 4.0- 10.9 [facility] [place] [address] [phone] RBC 5.08 M/ul 4.70-6.10 Hemoglobin 15.6 GM/dl 13.5-18.0 Hematocrit 44.9 % 42.0-52.0 MCV 88.4 FL 80.0-97.0 MCH 30.7 pg 27.0-31.0 MCHC 34.7 g/dL 32.0-36.0 RDW 14.1 % 11.5-14.5 Platelet Count 182 K/ul 140-440 Neutrophils 63.3 % 50-70 Lymphocytes 25.7 % 20-44 Monocytes 8.6 % 2-9 Eosinophil 1.9 % 0-4 Basophil 0.5 % 0-2 Absolute Neutrophils 3.6 K/ul 2.05-7.63 Absolute Lymphocytes 1.4 K/ul 0.8-4.8 Absolute Monocytes 0.5 K/ul 0.1-1.0 Absolute Eosinophils 0.1 K/ul 0.1-0.5 Absolute Basophils 0.0 K/ul 0.0-0.3 Hematology Comment (Comm2) N/A Laboratory test 02/02/2010 [facility] (Do not Use) TSH 0.50 uIU/ml 0.34 -5.60 finding [facility] [place] [address] [phone] Hemoglobin A1c 6.3 % 4.1-6.5 Fungus Culture 02/02/2010 [facility] (Do not Use) Fungus Culture (SEE NOTE ) 77, 78 - LA [facility] [place] [address] [phone] Specimen Description - LA N/A Special Requests - LA N/A Result - LA N/A Report Status - LA N/A Lipid Panel 01/22/2009 [facility] (Do not Use) Cholesterol 188 mg/dL 50 -199 79 [facility] [place] [address] [phone] Triglycerides 125 mg/dL 10-150 HDL 32 mg/dL 29-71 80 Chol/HDL Ratio 5.9 Ratio 4.0-6.7 81 VLDL 25 mg/dL 2-29 LDL (Calc) 131 mg/dL High 20-129 82 CMP 01/22/2009 [facility] (Do not Use) Sodium 138 mmol/L 135-144 [facility] [place] [address] [phone] Potassium 4.5 mmol/L 3.6-5.2 Chloride 100 mmol/L 97-110 Carbon Dioxide 30 mmol/L 23-33 Glucose 112 mg/dL High 70-105 BUN 16 mg/dL 6-22 Creatinine 1.0 mg/dL 0.5-1.3 BUN/CR 16 Ratio 12.0-20.0 Calcium 9.7 mg/dL 8.6-10.2 Total Protein 6.9 g/dL 5.8-7.8 Albumin 4.7 g/dL 3.5-4.8 Globulin 2.2 g/dL 2.0-3.5 A/G Ratio 2.1 Ratio 1.0-2.2 Total Bilirubin 1.2 mg/dL 0.3-1.2 Alkaline Phosphatase 80 U/L 24-140 Alt 81 U/L High 4-45 Ast 39 U/L 12-40 Anion Gap 13 mmol/L 8-16 GFR Calculation > 60 mL/min 60-175 83 GFR For > 60 mL/min 60-175 84 Laboratory test 01/22/2009 [facility] (Do not Use) PSA 0.36 ng/ml 0.00- 4.00 85 finding [facility] [place] [address] [phone] CMP 03/06/2008 [facility] (Do not Use) Sodium 140 mmol/L 135-144 86 [facility] [place] [address] [phone] Potassium 4.1 mmol/L 3.6-5.2 Chloride 102 mmol/L 97-110 Carbon Dioxide 29 mmol/L 23-33 Glucose 92 mg/dL 70-105 BUN 20 mg/dL 6-22 Creatinine 1.0 mg/dL 0.5-1.3 BUN/CR 20 Ratio 12.0-20.0 Calcium 9.7 mg/dL 8.6-10.2 Total Protein 6.7 g/dL 5.8-7.8 Albumin 4.7 g/dL 3.5-4.8 Globulin 2.0 g/dL 2.0-3.5 A/G Ratio 2.4 Ratio High 1.0-2.2 Total Bilirubin 0.9 mg/dL 0.3-1.2 87 Alkaline Phosphatase 57 U/L 24-140 Alt 71 U/L High 4-45 Ast 40 U/L 12-40 Anion Gap 13 mmol/L 8-16 GFR Calculation > 60 mL/min 88 GFR For > 60 mL/min 89 [facility] 01/22/2008 [facility] (Do not Use) Sodium 139 mmol/L 135-144 [address] [place] [address] [phone] Potassium 4.7 mmol/L 3.6-5.2 Chloride 103 mmol/L 97-110 Carbon Dioxide 29 mmol/L 23-33 Glucose 113 mg/dL High 70-105 BUN 19 mg/dL 6-22 Creatinine 1.1 mg/dL 0.5-1.3 BUN/CR 17 Ratio 12.0-20.0 Calcium 9.6 mg/dL 8.6-10.2 Total Protein 7.0 g/dL 5.8-7.8 Albumin 4.7 g/dL 3.5-4.8 Globulin 2.3 g/dL 2.0-3.5 A/G Ratio 2.0 Ratio 1.0-2.2 Total Bilirubin 1.4 mg/dL High 0.3-1.2 Alkaline Phosphatase 65 U/L 24-140 Alt 100 U/L High 4-45 Ast 53 U/L High 12-40 Anion Gap 12 mmol/L 8-16 GFR Calculation > 60 mL/min 91 GFR For > 60 mL/min 92 Lipid Panel 01/22/2008 [facility] (Do not Use) Cholesterol 192 mg/dL 50 -199 [facility] [place] [address] [phone] Triglycerides 142 mg/dL 10-150 HDL 39 mg/dL Abnormal (>40) Chol/HDL Ratio 4.9 Ratio VLDL 28 mg/dL LDL (Calc) 125 mg/dL 20-129 Laboratory test 01/22/2008 [facility] (Do not Use) PSA 0.45 ng/ml 0.00- 4.00 93 finding [facility] [place] [address] [phone] CBC With Auto Diff 01/22/2008 [facility] (Do not Use) WBC 7.5 K/ul 4.0- 10.9 [facility] [place] [place] [address] [phone] RBC 5.58 M/ul 4.70-6.10 Hemoglobin 16.3 GM/dl 13.5-18.0 Hematocrit 47.3 % 42.0-52.0 MCV 84.9 FL 80.0-97.0 MCH 29.2 pg 27.0-31.0 MCHC 34.4 g/dL 32.0-36.0 RDW 12.6 % 11.5-14.5 Platelet Count 241 K/ul 140-440 Neutrophils 65.5 % 50-70 Lymphocytes 22.1 % 20-44 Monocytes 9.3 % High 2-9 Eosinophil 2.5 % 0-4 Basophil 0.6 % 0-2 Absolute Neutrophils 4.9 K/ul 2.05-7.63 Absolute Lymphocytes 1.7 K/ul 0.8-4.8 Absolute Monocytes 0.7 K/ul 0.1-1.0 Absolute Eosinophils 0.2 K/ul 0.1-0.5 Absolute Basophils 0.0 K/ul Low 0.1-0.3 Laboratory test 01/22/2008 [facility] (Do not Use) TSH 0.90 uIU/ml 0.34 -5.60 [place] [address] [phone] Vitamin D, 25 Hydroxy 32 ng/mL 19-58 Vitamin B12 499 pg/mL 180-914 PTH,Intact W/ CA 02/13/2007 [facility] (Do not Use) PTH Intact-LA 2.3 pmol /L 0.7-5.1 94 [facility] [place] [address] [phone] Calcium -RL (PTH) 9.7 mg/dL 8.4-10.2 CMP 01/16/2007 [facility] (Do not Use) Sodium 138 mmol/L 135-144 95 [facility] [place] [address] [phone] Potassium 5.2 mmol/L 3.6-5.2 Chloride 102 mmol/L 97-110 Carbon Dioxide 27 mmol/L 23-33 Glucose 109 mg/dL High 70-105 BUN 21 mg/dL 6-22 Creatinine 1.0 mg/dL 0.5-1.3 BUN/CR 21 Ratio High 12.0-20.0 Calcium 9.9 mg/dL 8.6-10.2 Total Protein 6.8 g/dL 5.8-7.8 Albumin 4.7 g/dL 3.5-4.8 Globulin 2.1 g/dL 2.0-3.5 A/G Ratio 2.2 Ratio 1.0-2.2 Total Bilirubin 1.1 mg/dL 0.3-1.2 Alkaline Phosphatase 83 U/L 24-140 Alt 46 U/L High 4-45 Ast 27 U/L 12-40 Anion Gap 14 mmol/L 8-16 GFR White Male 83 GFR White Female 61 GFR Black Male 100 GFR Black Female 74 GFR Guidelines 0 96 Lipid Panel 01/16/2007 [facility] (Do not Use) Cholesterol 194 mg/dL 50 -199 [facility] [place] [address] [phone] Triglycerides 84 mg/dL 10-150 HDL 48 mg/dL 29-71 Chol/HDL Ratio 4.0 Ratio VLDL 17 mg/dL LDL (Calc) 129 mg/dL 20-129 Laboratory test 01/16/2007 [facility] (Do not Use) PSA 0.42 ng/ml 0.00- 4.00 97 finding [facility] [place] [address] [phone] CMP 10/31/2006 [facility] (Do not Use) Sodium 139 mmol/L 135-144 [facility] [place] [address] [phone] Potassium 5.5 mmol/L High 3.6-5.2 98 Chloride 102 mmol/L 97-110 Carbon Dioxide 31 mmol/L 23-33 Glucose 102 mg/dL 70-105 BUN 17 mg/dL 6-22 Creatinine 1.1 mg/dL 0.5-1.3 BUN/CR 15 Ratio 12.0-20.0 Calcium 10.0 mg/dL 8.6-10.2 Total Protein 7.1 g/dL 5.8-7.8 Albumin 4.6 g/dL 3.5-4.8 Globulin 2.5 g/dL 2.0-3.5 A/G Ratio 1.8 Ratio 1.0-2.2 Total Bilirubin 1.2 mg/dL 0.3-1.2 Alkaline Phosphatase 85 U/L 24-140 Alt 52 U/L High 4-45 Ast 29 U/L 12-40 Anion Gap 12 mmol/L 8-16 GFR White Male 74 GFR White Female 55 GFR Black Male 90 GFR Black Female 67 GFR Guidelines 0 99 Laboratory test 10/31/2006 [facility] (Do not Use) Hemoglobin A1c 5.9 % 4.1-6.5 finding [facility] [place] [address] [phone] Laboratory test 12/21/2004 [facility] (Do not Use) PSA 0.42 0.00-4.00 100 finding [facility] ng/[place] [address] [phone] Lipid Panel 12/21/2004 [facility] (Do not Use) Cholesterol 179 50-199 [facility] mg/[place] [address] [phone] Triglycerides 70 mg/dL 30-200 HDL 40 mg/dL 29-71 Chol/HDL Ratio 4.5 Ratio VLDL 14 mg/dL LDL (Calc) 125 mg/dL 20-129 CMP 12/21/2004 [facility] (Do not Use) Sodium 143 mmol/L 135-145 [facility] [place] [address] [phone] Potassium 5.4 mmol/L High 3.4-5.3 101 Chloride 105 mmol/L 98-111 Carbon Dioxide 30 mmol/L 22-33 Glucose 113 mg/dL High 70-105 BUN 21 mg/dL 6-26 Creatinine 1.1 mg/dL 0.5-1.5 BUN/CR 19 Ratio 12.0-20.0 Calcium 10.1 mg/dL 8.6-10.3 Total Protein 7.6 g/dL 6.2-8.3 Albumin 4.8 g/dL 3.5-5.0 Globulin 2.8 g/dL 2.7-4.3 A/G Ratio 1.7 Ratio 1.0-2.2 Total Bilirubin 1.2 mg/dL 0.1-1.3 Ast 26 U/L 8-42 Alt 45 U/L High 3-42 Alkaline Phosphatase 81 U/L 24-108 Anion Gap 13 mmol/L 10-20 1 Normal Kidney Function or Mild Disease - GFR >OR=60 Chronic Kidney Disease - GFR 15-59 Renal Failure - GFR < 15 GFR not calculated on patients under 18 years of age. 2 Beginning 12/10/06 PSA values assayed at [facility] uses chemiluminescence methodology manufactured by [employer] for use on the DXI analyzer. Values obtained with different assay methods or kits can not be used interchangeably. Serum PSA measurement is not an absolute test for malignancy. The PSA value should be used in conjunction with information available from clinical evaluation and other diagnostic procedures. 3 Per NCEP ATP III Guidelines: Results lower than 40 mg/dL are suggestive of increased risk for coronary artery disease. Results > or=to 60 mg/dL are considered a negative risk factor. 4 Per NCEP ATP III Guidelines: Normal Population <130 Patients with medical conditions: CHD/DM Optimal: <100 Borderline high: 130-159 High: 160-189 Very high: >189 5 Updated reference range on new analyzer 6 Updated reference range on new analyzer 7 Concerning GFR Guidelines for Americans: Normal function or mild renal disease, if clinically at risk: >/=60 mL/min Moderately decreased: 30-59 Severely decreased: 15-29 Renal failure: <15 8 Concerning GFR Guidelines: Normal function or mild renal disease, if clinically at risk: >/=60 mL/min Moderately decreased: 30-59 Severely decreased: 15-29 Renal failure: <15 Glomerular Filtration Rate (GFR) is estimated based on the MDRD equation, which assumes a steady state for creatinine as recommended by the National Kidney Disease Education Program in conjunction with the National Institutes of Health and the National Kidney Foundation. Clinical conditions in which it may be necessary to measure GFR by using clearance methods include extremes of age and body size, severe malnutrition or obesity, diseases of skeletal muscle, paraplegia or quadriplegia, vegetarian diet, rapidly changing kidney function, and calculation of the dose of potentially toxic drugs that are excreted by the kidneys. 9 Updated Reference Range 10 Updated reference range on new analyzer 11 Updated reference range on new analyzer 12 Concerning GFR Guidelines for Americans: Normal function or mild renal disease, if clinically at risk: >/=60 mL/min Moderately decreased: 30-59 Severely decreased: 15-29 Renal failure: <15 13 Concerning GFR Guidelines: Normal function or mild renal disease, if clinically at risk: >/=60 mL/min Moderately decreased: 30-59 Severely decreased: 15-29 Renal failure: <15 Glomerular Filtration Rate (GFR) is estimated based on the MDRD equation, which assumes a steady state for creatinine as recommended by the National Kidney Disease Education Program in conjunction with the National Institutes of Health and the National Kidney Foundation. Clinical conditions in which it may be necessary to measure GFR by using clearance methods include extremes of age and body size, severe malnutrition or obesity, diseases of skeletal muscle, paraplegia or quadriplegia, vegetarian diet, rapidly changing kidney function, and calculation of the dose of potentially toxic drugs that are excreted by the kidneys. 14 Updated Reference Range 15 Per NCEP ATP III Guidelines: Results lower than 40 mg/dL are suggestive of increased risk for coronary artery disease. Results > or=to 60 mg/dL are considered a negative risk factor. 16 Per NCEP ATP III Guidelines: Normal Population <130 Patients with medical conditions: CHD/DM Optimal: <100 Borderline high: 130-159 High: 160-189 Very high: >189 17 Beginning 12/10/06 PSA values assayed at [facility] uses chemiluminescence methodology manufactured by [employer] for use on the DXI analyzer. Values obtained with different assay methods or kits can not be used interchangeably. Serum PSA measurement is not an absolute test for malignancy. The PSA value should be used in conjunction with information available from clinical evaluation and other diagnostic procedures. 18 Updated reference range on new analyzer 19 Updated reference range on new analyzer 20 Concerning GFR Guidelines for Americans: Normal function or mild renal disease, if clinically at risk: >/=60 mL/min Moderately decreased: 30-59 Severely decreased: 15-29 Renal failure: <15 21 Concerning GFR Guidelines: Normal function or mild renal disease, if clinically at risk: >/=60 mL/min Moderately decreased: 30-59 Severely decreased: 15-29 Renal failure: <15 Glomerular Filtration Rate (GFR) is estimated based on the MDRD equation, which assumes a steady state for creatinine as recommended by the National Kidney Disease Education Program in conjunction with the National Institutes of Health and the National Kidney Foundation. Clinical conditions in which it may be necessary to measure GFR by using clearance methods include extremes of age and body size, severe malnutrition or obesity, diseases of skeletal muscle, paraplegia or quadriplegia, vegetarian diet, rapidly changing kidney function, and calculation of the dose of potentially toxic drugs that are excreted by the kidneys. 22 Updated reference range on new analyzer 23 Updated reference range on new analyzer 24 5.7 No visible hemolysis. 25 Updated reference range on new analyzer 26 Concerning GFR Guidelines for Americans: Normal function or mild renal disease, if clinically at risk: >/=60 mL/min Moderately decreased: 30-59 Severely decreased: 15-29 Renal failure: <15 27 Concerning GFR Guidelines: Normal function or mild renal disease, if clinically at risk: >/=60 mL/min Moderately decreased: 30-59 Severely decreased: 15-29 Renal failure: <15 Glomerular Filtration Rate (GFR) is estimated based on the MDRD equation, which assumes a steady state for creatinine as recommended by the National Kidney Disease Education Program in conjunction with the National Institutes of Health and the National Kidney Foundation. Clinical conditions in which it may be necessary to measure GFR by using clearance methods include extremes of age and body size, severe malnutrition or obesity, diseases of skeletal muscle, paraplegia or quadriplegia, vegetarian diet, rapidly changing kidney function, and calculation of the dose of potentially toxic drugs that are excreted by the kidneys. 28 Updated reference range on new analyzer 29 Per NCEP ATP III Guidelines: Results lower than 40 mg/dL are suggestive of increased risk for coronary artery disease. Results > or=to 60 mg/dL are considered a negative risk factor. 30 Per NCEP ATP III Guidelines: Normal Population <130 Patients with medical conditions: CHD/DM Optimal: <100 Borderline high: 130-159 High: 160-189 Very high: >189 31 Concerning GFR Guidelines for Americans: Normal function or mild renal disease, if clinically at risk: >/=60 mL/min Moderately decreased: 30-59 Severely decreased: 15-29 Renal failure: <15 32 Concerning GFR Guidelines: Normal function or mild renal disease, if clinically at risk: >/=60 mL/min Moderately decreased: 30-59 Severely decreased: 15-29 Renal failure: <15 Glomerular Filtration Rate (GFR) is estimated based on the MDRD equation, which assumes a steady state for creatinine as recommended by the National Kidney Disease Education Program in conjunction with the National Institutes of Health and the National Kidney Foundation. Clinical conditions in which it may be necessary to measure GFR by using clearance methods include extremes of age and body size, severe malnutrition or obesity, diseases of skeletal muscle, paraplegia or quadriplegia, vegetarian diet, rapidly changing kidney function, and calculation of the dose of potentially toxic drugs that are excreted by the kidneys. 33 Per NCEP ATP III Guidelines: Results lower than 40 mg/dL are suggestive of increased risk for coronary artery disease. Results > or=to 60 mg/dL are considered a negative risk factor. 34 Per NCEP ATP III Guidelines: Normal Population <130 Patients with medical conditions: CHD/DM Optimal: <100 Borderline high: 130-159 High: 160-189 Very high: >189 35 Beginning 12/10/06 PSA values assayed at [facility] uses chemiluminescence methodology manufactured by [employer] for use on the DXI analyzer. Values obtained with different assay methods or kits can not be used interchangeably. Serum PSA measurement is not an absolute test for malignancy. The PSA value should be used in conjunction with information available from clinical evaluation and other diagnostic procedures. 36 Concerning GFR Guidelines for Americans: Normal function or mild renal disease, if clinically at risk: >/=60 mL/min Moderately decreased: 30-59 Severely decreased: 15-29 Renal failure: <15 37 Concerning GFR Guidelines: Normal function or mild renal disease, if clinically at risk: >/=60 mL/min Moderately decreased: 30-59 Severely decreased: 15-29 Renal failure: <15 Glomerular Filtration Rate (GFR) is estimated based on the MDRD equation, which assumes a steady state for creatinine as recommended by the National Kidney Disease Education Program in conjunction with the National Institutes of Health and the National Kidney Foundation. Clinical conditions in which it may be necessary to measure GFR by using clearance methods include extremes of age and body size, severe malnutrition or obesity, diseases of skeletal muscle, paraplegia or quadriplegia, vegetarian diet, rapidly changing kidney function, and calculation of the dose of potentially toxic drugs that are excreted by the kidneys. 38 Per NCEP ATP III Guidelines: Results lower than 40 mg/dL are suggestive of increased risk for coronary artery disease. Results > or=to 60 mg/dL are considered a negative risk factor. 39 Per NCEP ATP III Guidelines: Normal Population <130 Patients with medical conditions: CHD/DM Optimal: <100 Borderline high: 130-159 High: 160-189 Very high: >189 40 Concerning GFR Guidelines for Americans: Normal function or mild renal disease, if clinically at risk: >/=60 mL/min Moderately decreased: 30-59 Severely decreased: 15-29 Renal failure: <15 41 Concerning GFR Guidelines: Normal function or mild renal disease, if clinically at risk: >/=60 mL/min Moderately decreased: 30-59 Severely decreased: 15-29 Renal failure: <15 Glomerular Filtration Rate (GFR) is estimated based on the MDRD equation, which assumes a steady state for creatinine as recommended by the National Kidney Disease Education Program in conjunction with the National Institutes of Health and the National Kidney Foundation. Clinical conditions in which it may be necessary to measure GFR by using clearance methods include extremes of age and body size, severe malnutrition or obesity, diseases of skeletal muscle, paraplegia or quadriplegia, vegetarian diet, rapidly changing kidney function, and calculation of the dose of potentially toxic drugs that are excreted by the kidneys. 42 23 Electrolytes confirmed by repeat. 43 Concerning GFR Guidelines for Americans: Normal function or mild renal disease, if clinically at risk: >/=60 mL/min Moderately decreased: 30-59 Severely decreased: 15-29 Renal failure: <15 44 Concerning GFR Guidelines: Normal function or mild renal disease, if clinically at risk: >/=60 mL/min Moderately decreased: 30-59 Severely decreased: 15-29 Renal failure: <15 Glomerular Filtration Rate (GFR) is estimated based on the MDRD equation, which assumes a steady state for creatinine as recommended by the National Kidney Disease Education Program in conjunction with the National Institutes of Health and the National Kidney Foundation. Clinical conditions in which it may be necessary to measure GFR by using clearance methods include extremes of age and body size, severe malnutrition or obesity, diseases of skeletal muscle, paraplegia or quadriplegia, vegetarian diet, rapidly changing kidney function, and calculation of the dose of potentially toxic drugs that are excreted by the kidneys. 45 Beginning 12/10/06 PSA values assayed at [facility] uses an EIA methodology manufactured by [employer] for use on the DXI analyzer. Values obtained with different assay methods or kits can not be used interchangeably. Serum PSA measurement is not an absolute test for malignancy. The PSA value should be used in conjunction with information available from clinical evaluation and other diagnostic procedures. 46 Per NCEP ATP III Guidelines: Results lower than 40 mg/dL are suggestive of increased risk for coronary artery disease. Results > or=to 60 mg/dL are considered a negative risk factor. 47 Per NCEP ATP III Guidelines: Normal Population <130 Patients with medical conditions: CHD/DM Optimal: <100 Borderline high: 130-159 High: 160-189 Very high: >189 48 5.3 No visible hemolysis. 49 Concerning GFR Guidelines for Americans: Normal function or mild renal disease, if clinically at risk: >/=60 mL/min Moderately decreased: 30-59 Severely decreased: 15-29 Renal failure: <15 50 Concerning GFR Guidelines: Normal function or mild renal disease, if clinically at risk: >/=60 mL/min Moderately decreased: 30-59 Severely decreased: 15-29 Renal failure: <15 Glomerular Filtration Rate (GFR) is estimated based on the MDRD equation, which assumes a steady state for creatinine as recommended by the National Kidney Disease Education Program in conjunction with the National Institutes of Health and the National Kidney Foundation. Clinical conditions in which it may be necessary to measure GFR by using clearance methods include extremes of age and body size, severe malnutrition or obesity, diseases of skeletal muscle, paraplegia or quadriplegia, vegetarian diet, rapidly changing kidney function, and calculation of the dose of potentially toxic drugs that are excreted by the kidneys. 51 Concerning GFR Guidelines for Americans: Normal function or mild renal disease, if clinically at risk: >/=60 mL/min Moderately decreased: 30-59 Severely decreased: 15-29 Renal failure: <15 52 Concerning GFR Guidelines: Normal function or mild renal disease, if clinically at risk: >/=60 mL/min Moderately decreased: 30-59 Severely decreased: 15-29 Renal failure: <15 Glomerular Filtration Rate (GFR) is estimated based on the MDRD equation, which assumes a steady state for creatinine as recommended by the National Kidney Disease Education Program in conjunction with the National Institutes of Health and the National Kidney Foundation. Clinical conditions in which it may be necessary to measure GFR by using clearance methods include extremes of age and body size, severe malnutrition or obesity, diseases of skeletal muscle, paraplegia or quadriplegia, vegetarian diet, rapidly changing kidney function, and calculation of the dose of potentially toxic drugs that are excreted by the kidneys. 53 Beginning 12/10/06 PSA values assayed at [facility] uses an EIA methodology manufactured by [employer] for use on the DXI analyzer. Values obtained with different assay methods or kits can not be used interchangeably. Serum PSA measurement is not an absolute test for malignancy. The PSA value should be used in conjunction with information available from clinical evaluation and other diagnostic procedures. 54 Per NCEP ATP III Guidelines: Results lower than 40 mg/dL are suggestive of increased risk for coronary artery disease. Results > or=to 60 mg/dL are considered a negative risk factor. 55 Per NCEP ATP III Guidelines: Normal Population <130 Patients with medical conditions: CHD/DM Optimal: <100 Borderline high: 130-159 High: 160-189 Very high: >189 56 Concerning GFR Guidelines for Americans: Normal function or mild renal disease, if clinically at risk: >/=60 mL/min Moderately decreased: 30-59 Severely decreased: 15-29 Renal failure: <15 57 Concerning GFR Guidelines: Normal function or mild renal disease, if clinically at risk: >/=60 mL/min Moderately decreased: 30-59 Severely decreased: 15-29 Renal failure: <15 Glomerular Filtration Rate (GFR) is estimated based on the MDRD equation, which assumes a steady state for creatinine as recommended by the National Kidney Disease Education Program in conjunction with the National Institutes of Health and the National Kidney Foundation. Clinical conditions in which it may be necessary to measure GFR by using clearance methods include extremes of age and body size, severe malnutrition or obesity, diseases of skeletal muscle, paraplegia or quadriplegia, vegetarian diet, rapidly changing kidney function, and calculation of the dose of potentially toxic drugs that are excreted by the kidneys. 58 Concerning GFR Guidelines for Americans: Normal function or mild renal disease, if clinically at risk: >/=60 mL/min Moderately decreased: 30-59 Severely decreased: 15-29 Renal failure: <15 59 Concerning GFR Guidelines: Normal function or mild renal disease, if clinically at risk: >/=60 mL/min Moderately decreased: 30-59 Severely decreased: 15-29 Renal failure: <15 Glomerular Filtration Rate (GFR) is estimated based on the MDRD equation, which assumes a steady state for creatinine as recommended by the National Kidney Disease Education Program in conjunction with the National Institutes of Health and the National Kidney Foundation. Clinical conditions in which it may be necessary to measure GFR by using clearance methods include extremes of age and body size, severe malnutrition or obesity, diseases of skeletal muscle, paraplegia or quadriplegia, vegetarian diet, rapidly changing kidney function, and calculation of the dose of potentially toxic drugs that are excreted by the kidneys. 60 Per NCEP ATP III Guidelines: Results lower than 40 mg/dL are suggestive of increased risk for coronary artery disease. Results > or=to 60 mg/dL are considered a negative risk factor. 61 Per NCEP ATP III Guidelines: Optimal: <100 Near optimal: 100-129 Borderline high: 130-159 High: 160-189 Very high: >189 62 Beginning 12/10/06 PSA values assayed at [facility] uses an EIA methodology manufactured by [employer] for use on the DXI analyzer. Values obtained with different assay methods or kits can not be used interchangeably. Serum PSA measurement is not an absolute test for malignancy. The PSA value should be used in conjunction with information available from clinical evaluation and other diagnostic procedures. 63 This sample is drawn by:[facility] 64 Concerning GFR Guidelines: Normal function or mild renal disease, if clinically at risk: >/=60 mL/min Moderately decreased: 30-59 Severely decreased: 15-29 Renal failure: <15 Glomerular Filtration Rate (GFR) is estimated based on the MDRD equation, which assumes a steady state for creatinine as recommended by the National Kidney Disease Education Program in conjunction with the National Institutes of Health and the National Kidney Foundation. Clinical conditions in which it may be necessary to measure GFR by using clearance methods include extremes of age and body size, severe malnutrition or obesity, diseases of skeletal muscle, paraplegia or quadriplegia, vegetarian diet, rapidly changing kidney function, and calculation of the dose of potentially toxic drugs that are excreted by the kidneys. 65 Concerning GFR Guidelines for Americans: Normal function or mild renal disease, if clinically at risk: >/=60 mL/min Moderately decreased: 30-59 Severely decreased: 15-29 Renal failure: <15 66 Per NCEP ATP III Guidelines: Results lower than 40 mg/dL are suggestive of increased risk for coronary artery disease. Results > or=to 60 mg/dL are considered a negative risk factor. 67 Per NCEP ATP III Guidelines: Optimal: <100 Near optimal: 100-129 Borderline high: 130-159 High: 160-189 Very high: >189 68 Beginning 12/10/06 PSA values assayed at [facility] uses an EIA methodology manufactured by [employer] for use on the DXI analyzer. Values obtained with different assay methods or kits can not be used interchangeably. Serum PSA measurement is not an absolute test for malignancy. The PSA value should be used in conjunction with information available from clinical evaluation and other diagnostic procedures. 69 FASTING This sample is drawn by: BB 70 The difference between the most recent result of 1.2 and the current result of 0.8 exceeds the absolute delta value of 0.3 as defined for this test. 71 Concerning GFR GUIDELINES: Normal Function or Mild Renal Disease, if clinically at risk: >/=60mL/min Moderately decreased: 30-59 Severely decreased: 15-29 Renal Failure: <15 Glomerular Filtration Rate (GFR) is estimated based on the MDRD equation, which assumes a steady state for creatinine as recommended by the National Kidney Disease Education Program in conjunction with the National Institutes of Health and the National Kidney Foundation. Clinical conditions in which it may be necessary to measure GFR by using clearance methods include extremes of age and body size, severe malnutrition or obesity, diseases of skeletal muscle, paraplegia or quadriplegia, vegetarian diet, rapidly changing kidney function, and calculation of the dose of potentially toxic drugs that are excreted by the kidneys. 72 Concerning GFR GUIDELINES: Normal Function or Mild Renal Disease, if clinically at risk: >/=60mL/min Moderately decreased: 30-59 Severely decreased: 15-29 Renal Failure: <15 73 PER NCEP ATP III GUIDELINES: RESULTS LOWER THAN 40 MG/DL ARE SUGGESTIVE OF INCREASED RISK FOR CORONARY ARTERY DISEASE. RESULTS > OR=TO 60 MG/DL ARE CONSIDERED A NEGATIVE RISK FACTOR. 74 INTERPRETATION OF CHOL-HDL RATIO CHD RISK FEMALE MALE VERY HIGH >8.3 >14.3 HIGH 5.6 - 8.3 6.7 - 14.3 AVERAGE 3.7 - 5.6 4.0 - 6.7 BELOW AVERAGE 2.5 - 3.7 2.7 - 4.0 PROTECTED <2.5 <2.7 75 PER NCEP ATP III GUIDELINES: OPTIMAL: <100 NEAR OPTIMAL: 100 - 129 BORDERLINE HIGH: 130 - 159 HIGH: 160 - 189 VERY HIGH: >189 76 BEGINNING 12/10/06, PSA VALUES ASSAYED AT [facility] USES AN EIA METHODOLOGY MANUFACTURED BY [employer] FOR USE ON THE DXI ANALYZER. VALUES OBTAINED WITH DIFFERENT ASSAY METHODS OR KITS CAN NOT BE USED INTERCHANGEABLY. SERUM PSA MEASUREMENT IS NOT AN ABSOLUTE TEST FOR MALIGNANCY, THE PSA VALUE SHOULD BE USED IN CONJUNCTION WITH INFORMATION AVAILABLE FROM CLINICAL EVALUATION AND OTHER DIAGNOSTIC PROCEDURES. 77 This sample is drawn by: [facility]IL[facility] 78 SPECIMEN DESCRIPTION TOENAIL SPECIAL REQUESTS NONE CULTURE RESULTS NO FUNGUS ISOLATED AFTER 4 WEEKS REPORT STATUS FINAL [id number] Unless otherwise specified, testing performed by [facility] [address] [place] [id number] FASTING This sample is drawn by: GILMAR 80 PER NCEP ATP III GUIDELINES: RESULTS LOWER THAN 40 MG/DL ARE SUGGESTIVE OF INCREASED RISK FOR CORONARY ARTERY DISEASE. RESULTS > OR=TO 60 MG/DL ARE CONSIDERED A NEGATIVE RISK FACTOR. 81 INTERPRETATION OF CHOL-HDL RATIO CHD RISK FEMALE MALE VERY HIGH >8.3 >14.3 HIGH 5.6 - 8.3 6.7 - 14.3 AVERAGE 3.7 - 5.6 4.0 - 6.7 BELOW AVERAGE 2.5 - 3.7 2.7 - 4.0 PROTECTED <2.5 <2.7 82 PER NCEP ATP III GUIDELINES: OPTIMAL: <100 NEAR OPTIMAL: 100 - 129 BORDERLINE HIGH: 130 - 159 HIGH: 160 - 189 VERY HIGH: >189 83 Concerning GFR GUIDELINES: Normal Function or Mild Renal Disease, if clinically at risk: >/=60mL/min Moderately decreased: 30-59 Severely decreased: 15-29 Renal Failure: <15 Glomerular Filtration Rate (GFR) is estimated based on the MDRD equation, which assumes a steady state for creatinine as recommended by the National Kidney Disease Education Program in conjunction with the National Institutes of Health and the National Kidney Foundation. Clinical conditions in which it may be necessary to measure GFR by using clearance methods include extremes of age and body size, severe malnutrition or obesity, diseases of skeletal muscle, paraplegia or quadriplegia, vegetarian diet, rapidly changing kidney function, and calculation of the dose of potentially toxic drugs that are excreted by the kidneys. 84 Concerning GFR GUIDELINES: Normal Function or Mild Renal Disease, if clinically at risk: >/=60mL/min Moderately decreased: 30-59 Severely decreased: 15-29 Renal Failure: <15 85 BEGINNING 12/10/06, PSA VALUES ASSAYED AT [facility] USES AN EIA METHODOLOGY MANUFACTURED BY [employer] FOR USE ON THE DXI ANALYZER. VALUES OBTAINED WITH DIFFERENT ASSAY METHODS OR KITS CAN NOT BE USED INTERCHANGEABLY. SERUM PSA MEASUREMENT IS NOT AN ABSOLUTE TEST FOR MALIGNANCY, THE PSA VALUE SHOULD BE USED IN CONJUNCTION WITH INFORMATION AVAILABLE FROM CLINICAL EVALUATION AND OTHER DIAGNOSTIC PROCEDURES. 86 FASTING 87 The difference between the most recent result of 1.4 and the current result of 0.9 exceeds the absolute delta value of 0.3 as defined for this test. 88 Concerning GFR GUIDELINES: Normal Function or Mild Renal Disease, if clinically at risk: >/=60mL/min Moderately decreased: 30-59 Severely decreased: 15-29 Renal Failure: <15 Glomerular Filtration Rate (GFR) is estimated based on the MDRD equation, which assumes a steady state for creatinine as recommended by the National Kidney Disease Education Program in conjunction with the National Institutes of Health and the National Kidney Foundation. Clinical conditions in which it may be necessary to measure GFR by using clearance methods include extremes of age and body size, severe malnutrition or obesity, diseases of skeletal muscle, paraplegia or quadriplegia, vegetarian diet, rapidly changing kidney function, and calculation of the dose of potentially toxic drugs that are excreted by the kidneys. 89 Concerning GFR GUIDELINES: Normal Function or Mild Renal Disease, if clinically at risk: >/=60mL/min Moderately decreased: 30-59 Severely decreased: 15-29 Renal Failure: <15 90 FASTING X GOLD 91 Concerning GFR GUIDELINES: Normal Function or Mild Renal Disease, if clinically at risk: >/=60mL/min Moderately decreased: 30-59 Severely decreased: 15-29 Renal Failure: <15 Glomerular Filtration Rate (GFR) is estimated based on the MDRD equation, which assumes a steady state for creatinine as recommended by the National Kidney Disease Education Program in conjunction with the National Institutes of Health and the National Kidney Foundation. Clinical conditions in which it may be necessary to measure GFR by using clearance methods include extremes of age and body size, severe malnutrition or obesity, diseases of skeletal muscle, paraplegia or quadriplegia, vegetarian diet, rapidly changing kidney function, and calculation of the dose of potentially toxic drugs that are excreted by the kidneys. 92 Concerning GFR GUIDELINES: Normal Function or Mild Renal Disease, if clinically at risk: >/=60mL/min Moderately decreased: 30-59 Severely decreased: 15-29 Renal Failure: <15 93 BEGINNING 12/10/06, PSA VALUES ASSAYED AT [facility] USES AN EIA METHODOLOGY MANUFACTURED BY [employer] FOR USE ON THE DXI ANALYZER. VALUES OBTAINED WITH DIFFERENT ASSAY METHODS OR KITS CAN NOT BE USED INTERCHANGEABLY. SERUM PSA MEASUREMENT IS NOT AN ABSOLUTE TEST FOR MALIGNANCY, THE PSA VALUE SHOULD BE USED IN CONJUNCTION WITH INFORMATION AVAILABLE FROM CLINICAL EVALUATION AND OTHER DIAGNOSTIC PROCEDURES. [address] COPY TO DR. VIPUL CR, AT [phone]. 95 FASTING 96 Normal Function or Mild Renal Disease, if clinically at risk: >/=60 mL/min Moderately decreased: 30-59 Severely decreased: 15-29 Renal Failure: <15 Glomerular Filtration Rate (GFR) is estimated based on the MDRD equation, which assumes a steady state for creatinine as recommended by the National Kidney Disease Education Program in conjunction with the National Institutes of Health and the National Kidney Foundation. Clinical conditions in which it may be necessary to measure GFR by using clearance methods include extremes of age and body size, severe malnutrition or obesity, diseases of skeletal muscle, paraplegia or quadriplegia, vegetarian diet, rapidly changing kidney function, and calculation of the dose of potentially toxic drugs that are excreted by the kidneys. 97 BEGINNING 12/10/06, PSA VALUES ASSAYED AT [facility] USES AN EIA METHODOLOGY MANUFACTURED BY [employer] FOR USE ON THE DXI ANALYZER. VALUES OBTAINED WITH DIFFERENT ASSAY METHODS OR KITS CAN NOT BE USED INTERCHANGEABLY. SERUM PSA MEASUREMENT IS NOT AN ABSOLUTE TEST FOR MALIGNANCY, THE PSA VALUE SHOULD BE USED IN CONJUNCTION WITH INFORMATION AVAILABLE FROM CLINICAL EVALUATION AND OTHER DIAGNOSTIC PROCEDURES. 98 NO VISIBLE HEMOLYSIS 10/31 99 Normal Function or Mild Renal Disease, if clinically at risk: >/=60 mL/min Moderately decreased: 30-59 Severely decreased: 15-29 Renal Failure: <15 Glomerular Filtration Rate (GFR) is estimated based on the MDRD equation, which assumes a steady state for creatinine as recommended by the National Kidney Disease Education Program in conjunction with the National Institutes of Health and the National Kidney Foundation. Clinical conditions in which it may be necessary to measure GFR by using clearance methods include extremes of age and body size, severe malnutrition or obesity, diseases of skeletal muscle, paraplegia or quadriplegia, vegetarian diet, rapidly changing kidney function, and calculation of the dose of potentially toxic drugs that are excreted by the kidneys. 100 PSA VALUES ASSAYED AT [facility] USES AN EIA METHODOLOGY MANUFACTURED BY [employer] FOR USE ON THE [employer] ANALYZER. VALUES OBTAINED WITH DIFFERENT ASSAY METHODS OR KITS CAN NOT BE USED INT ERCHANGEABLY. SERUM PSA MEASUREMENT IS NOT AN ABSOLUTE TEST FOR MALIGNANCY, THE PSA VALUE SHOULD BE USED IN CONJUNCTION WITH INFORMATION AVAILABLE FROM CLINICAL EVALUATION AND OTHER DIAGNOSTIC PROCEDURES. 101 NO VISIBLE HEMOLYSIS Procedures Date Code Description Status 10/24/2018 93688 Cardiovascular Stress Test W/Interpretation & Report Completed 10/04/2018 67029 Electrocardiogram Complete Completed 08/21/2018 69285 [facility] [employer] Performance Continuous Completed Electrocardio 08/21/2018 17436 Doppler Color Flow Velocity Mapping Completed 08/21/2018 60375 Doppler Echocardiography Complete Completed 08/09/2018 73519 Electrocardiogram Complete Completed 07/30/2017 96035 Polysmnography; Staging 4 Parameters W/Cpap Or Bilevel Completed Vent 05/31/2017 12448 Polysomnography Sleep Staging 4+ Parameters Completed 08/14/2016 [id number] Colonoscopy Completed 10/25/2015 50812 Electrocardiogram Complete Completed 08/16/2015 08291 Electrocardiogram Complete Completed 04/21/2015 62558 Doppler Echocardiography Complete Completed 04/21/2015 30554 [employer] [employer] Performance Continuous Completed Electrocardio 04/21/2015 64548 Doppler Color Flow Velocity Mapping Completed 04/06/2015 19687 Electrocardiogram Complete Completed 07/18/2012 49564 Polysmnography; Staging 4 Parameters W/Cpap Or Bilevel Completed Vent 07/03/2012 42062 Destruction Lesion/Any Method Premalignant Lesions Completed 03/30/2011 36276 Electrocardiogram Complete Completed 03/29/2011 60153 Electrocardiogram Complete Completed 02/15/2010 09417 Electrocardiogram Complete Completed 02/07/2010 59667 ECG Monitor/Report W/O Superimposition Scanning Completed 02/02/2010 98429 Electrocardiogram Complete Completed 09/27/2009 06461 Electrocardiogram Complete Completed 04/05/2009 83896 Polysmnography; Staging 4 Parameters W/Cpap Or Bilevel Completed Vent 03/20/2009 12238 Polysomnography Sleep Staging 4+ Parameters Completed 01/22/2008 15670 Electrocardiogram Complete Completed 01/16/2005 59281 Cardiovascular Stress Test Tracing Only Completed 01/16/2005 02888 Nuclear Myocardial Perfusion Study W/Ejection Fraction Completed 01/16/2005 30821 Nuclear Myocardial Perfusion Study W/Wall Motion Completed 01/16/2005 33866 Nuclear Spect. 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 I10 Essential (primary) hypertension I11.9 Hypertensive heart disease without heart failure E78.00 Pure hypercholesterolemia, unspecified E11.9 Type 2 diabetes mellitus without complications G47.33 Obstructive sleep apnea (adult) (pediatric) Z68.36 Body mass index (BMI) 36.0-36.9, adult Office Visit 10/29/2018 2:15p Josias Darnell G47.33 Obstructive sleep MD Costa MD apnea (adult) (pediatric) Office Visit 10/04/2018 9:30a [facility], [facility] Lore 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 I11.9 Hypertensive heart disease without heart failure Z82.49 Family hx of ischem heart dis and oth dis of the circ sys E78.00 Pure hypercholesterolemia, unspecified I10 Essential (primary) hypertension R07.9 Chest pain, unspecified Z95.5 Presence of coronary angioplasty implant and graft Z68.38 Body mass index (BMI) 38.0-38.9, adult Office Visit 09/17/2018 7:30a [facility] Bayron Ashley, I20.0 Unstable angina Cardiology E11.9 Type 2 diabetes mellitus without complications E78.00 Pure hypercholesterolemia, unspecified I65.21 Occlusion and stenosis of RIGHT carotid artery G47.33 Obstructive sleep apnea (adult) (pediatric) I11.9 Hypertensive heart disease without heart failure Z68.39 Body mass index (BMI) 39.0-39.9, adult Office Visit 08/28/2018 1:15p [facility] Bayron Ashley, I20.0 Unstable angina Cardiology I10 Essential (primary) hypertension E11.9 Type 2 diabetes mellitus without complications E78.00 Pure hypercholesterolemia, unspecified I65.21 Occlusion and stenosis of RIGHT carotid artery G47.33 Obstructive sleep apnea (adult) (pediatric) Z68.38 Body mass index (BMI) 38.0-38.9, adult Office Visit 08/09/2018 10:50a Jose Najera, Z00.00 Encntr for general adult medical exam w/o abnormal findings F33.1 Major depressive disorder, recurrent, moderate E11.9 Type 2 diabetes mellitus without complications Z12.5 Encounter for screening for malignant neoplasm of prostate Z12.11 Encounter for screening for malignant neoplasm of colon I10 Essential (primary) hypertension E66.01 Morbid (severe) obesity due to excess calories R07.9 Chest pain, unspecified Z23 Encounter for immunization Z68.38 Body mass index (BMI) 38.0-38.9, adult Office Visit 05/31/2018 8:00a Philippe Mims, Z01.818 Encounter for other MD Jose preprocedural examination E11.9 Type 2 diabetes mellitus without complications I10 Essential (primary) hypertension Z68.38 Body mass index (BMI) 38.0-38.9, adult Office Visit 04/30/2018 2:00p Josias Darnell G47.33 Obstructive sleep MD Costa MD apnea (adult) (pediatric) G47.61 Periodic limb movement disorder Office Visit 09/25/2017 3:15p Josias Darnell G47.33 Obstructive sleep MD Costa MD apnea (adult) (pediatric) G47.61 Periodic limb movement disorder Office Visit 08/14/2017 1:00p Josias Darnell G47.33 Obstructive sleep MD Costa MD apnea (adult) (pediatric) G47.61 Periodic limb movement disorder Office Visit 06/14/2017 9:00a Josias Darnell G47.33 Obstructive sleep MD Costa MD apnea (adult) (pediatric) G47.61 Periodic limb movement disorder J32.9 Chronic sinusitis, unspecified J34.3 Hypertrophy of nasal turbinates J34.2 Deviated nasal septum Office Visit 04/10/2017 2:15p Josias Darnell J32.9 Chronic sinusMD DENNIS cristina unspecified G47.33 Obstructive sleep apnea (adult) (pediatric) J34.3 Hypertrophy of nasal turbinates J34.2 Deviated nasal septum Office Visit 03/20/2017 7:30a Jose Najera, Z00.00 Encntr for general adult medical exam w/o abnormal findings E11.9 Type 2 diabetes mellitus without complications I10 Essential (primary) hypertension R73.09 Other abnormal glucose Z12.5 Encounter for screening for malignant neoplasm of prostate Z12.11 Encounter for screening for malignant neoplasm of colon G47.33 Obstructive sleep apnea (adult) (pediatric) R00.2 Palpitations F33.1 Major depressive disorder, recurrent, moderate Office Visit 02/06/2017 10:40a Philippe Mims, E11.9 Type 2 diabetes MD Jose mellitus without complications I10 Essential (primary) hypertension Office Visit 04/11/2016 11:50a Joey Najera0 Essential ( primary) MD Jose hypertension Office Visit 03/14/2016 11:20a Philippe Mims Z00.00 Encntr for general MD Jose adult medical exam w/o abnormal findings I10 Essential (primary) hypertension E11.9 Type 2 diabetes mellitus without complications Z12.5 Encounter for screening for malignant neoplasm of prostate Z12.11 Encounter for screening for malignant neoplasm of colon Office Visit 01/11/2016 1:50p Philippe Mims, M54.30 SciaticaJose MD unspecified side Office Visit 12/28/2015 11:30a Philippe Mims, I10 Essential ( primary) MD Jose hypertension E11.9 Type 2 diabetes mellitus without complications Office Visit 11/26/2015 11:40a Philippe Mims I10 Essential ( primary) MD Jose hypertension Office Visit 10/25/2015 2:10p Philippe Mims, Z01.818 Encounter for elsi Garcia MD preprocedural examination I10 Essential (primary) hypertension E11.9 Type 2 diabetes mellitus without complications E66.09 Other obesity due to excess calories G47.33 Obstructive sleep apnea (adult) (pediatric) Office Visit 08/16/2015 1:10p Philippe Mims Z01.818 Encounter for elsi Garcia MD preprocedural examination Z23 Encounter for immunization Office Visit 04/06/2015 10:50a Philippe Mims, 401.1 Hypertension Benign MD Jose 786.59 Pain Chest Other 278.00 Obesity Unspec Office Visit 02/02/2015 8:20a Jose Najera, V70.0 Exam ( Adult) General Medical Routine AT Health Care Facility 250.00 Diabetes Mellitus W/O Compl Type II Or Unspec Controlled 401.1 Hypertension Benign V76.44 Screening For Malig Erick Prostate V76.51 Special Screening For Malignant Neoplasms Colon 327.23 Apnea, Obstructive Sleep Apnea Adult & Pediatric V73.89 Screening Examination Viral Diseases Other Spec V73.99 Screening Examination Viral Disease Unspec V07.2 Prophylactic Immunotherapy 356.8 Neuropathy Other Spec Idiopathic Peripheral V06.1 Frxcdukxzk-Vsyjeuo-Qygxvxfm Combined (DTaP) Office Visit 05/26/2014 9:00a Jose Najera, 790.6 Abnormal Blood MD Chemistry Other 250.00 Diabetes Mellitus W/O Compl Type II Or Unspec Controlled 401.1 Hypertension Benign 922.9 Contusion Trunk Unspec Part Office Visit 04/28/2014 3:10p Jose Najera, 922.9 Contusion Trunk MD Unspec Part Office Visit 01/27/2014 9:00a Jose Najera V70.0 Exam ( Adult) General Medical Routine AT Health Care Facility 401.1 Hypertension Benign V76.44 Screening For Malig Erick Prostate V76.51 Special Screening For Malignant Neoplasms Colon 847.0 Sprains & Strains Neck 790.6 Abnormal Blood Chemistry Other Office Visit 08/14/2012 9:20a Nicholas Darnell Lori 327.23 Apnea, Obstructive MD Orozco, PHYSICAL THERAPIST AIDE Sleep Apnea Adult & Pediatric Office Visit 07/11/2012 3:00p Nicholas Darnell Lori 327.23 Apnea, Obstructive MD Orozco, PHYSICAL THERAPIST AIDE Sleep Apnea Adult & Pediatric Office Visit 07/03/2012 9:30a Philippe Mims V70.0 Exam (Adult) MD Jose General Medical Routine AT Health Care Facility 401.1 Hypertension Benign V76.44 Screening For Malig Erick Prostate V76.51 Special Screening For Malignant Neoplasms Colon 327.23 Apnea, Obstructive Sleep Apnea Adult & Pediatric 296.32 Depressive Disorder Major Recurrent Moderate 592.0 Calculus Of Kidney 238.2 Neoplasm Uncertain Skin Determined By Pathology V07.2 Prophylactic Immunotherapy Office Visit 07/28/2011 11:20a Philippe Mims, 682.6 Cellulitis & MD Jose Abscess Leg Except Foot Office Visit 07/21/2011 10:30a Philippe Mims, 682.6 Cellulitis & MD Jose Abscess Leg Except Foot Office Visit 07/17/2011 11:50a Philippe Mims 682.6 Cellulitis & MD Jose Abscess Leg Except Foot Office Visit 07/11/2011 3:10p Philippe Mims, 682.6 Cellulitis & MD Jose Abscess Leg Except Foot Office Visit 05/12/2011 2:40p Philippe Mims, 401.1 Hypertension Benign MD Jose Office Visit 04/21/2011 1:50p Philippe Mims, 401.1 Hypertension Benign MD Jose 706.2 Sebaceous Cyst Office Visit 03/29/2011 9:00a Jose Najera, V70.0 Exam ( Adult) General Medical Routine AT Health Care Facility 401.1 Hypertension Benign 272.2 Hyperlipidemia Mixed V76.44 Screening For Malig Erick Prostate V76.51 Special Screening For Malignant Neoplasms Colon 786.59 Pain Chest Other 307.42 Sleep Disorder Persistent Initiating Or Maintaining Sleep Office Visit 01/06/2011 3:50p Jose Najera, 274.9 Gout Unspec MD Office Visit 05/13/2010 3:50p Jose Najera, 841.9 Sprains & Strains Elbow & Forearm Unspec Office Visit 05/06/2010 4:00p Jose Najera, 841.9 Sprains & Strains Elbow & Forearm Unspec Office Visit 02/02/2010 7:30a Jose Najera, V70.0 Exam ( Adult) General Medical Routine AT Health Care Facility 401.1 Hypertension Benign 272.2 Hyperlipidemia Mixed V76.44 Screening For Malig Erick Prostate V76.51 Special Screening For Malignant Neoplasms Colon 110.1 Dermatophytosis Nail 785.1 Palpitations 790.6 Abnormal Blood Chemistry Other Office Visit 09/27/2009 3:00p Philippe Mims V72.83 Examination MD Jose Preoperative Other Spec 789.01 Pain Abdominal RIGHT Upper Quadrant 401.1 Hypertension Benign Office Visit 09/14/2009 2:30p Philippe Mims, 789.01 Pain Abdominal MD Jose RIGHT Upper Quadrant Office Visit 05/28/2009 8:00a Nicholas Darnell, Nely Orozco, 327.23 Apnea , PHYSICAL THERAPIST AIDE Obstructive Sleep Apnea Adult & Pediatric 780.50 Sleep Disturbance Unspec, Non-Covered Office Visit 04/28/2009 8:00a Josias Darnell 327.23 Apnea, Obstructive MD Costa MD Sleep Apnea Adult & Pediatric Office Visit 03/26/2009 3:30p Josias Darnell 327.23 Apnea, Obstructive MD Costa MD Sleep Apnea Adult & Pediatric Office Visit 02/26/2009 8:30a Josias Darnell 780.50 Sleep Disturbance MD Csota MD Unspec, Non-Covered Office Visit 01/22/2009 7:30a Philippe Mims, V70.0 Exam (Adult) MD Jose General Medical Routine AT Health Care Facility V76.44 Screening For Malig Erick Prostate V76.51 Special Screening For Malignant Neoplasms Colon 401.1 Hypertension Benign 272.2 Hyperlipidemia Mixed 296.32 Depressive Disorder Major Recurrent Moderate 278.01 Obesity Morbid 780.59 Sleep Disturbances, Other Office Visit 03/06/2008 8:00a Philippe Mims, 272.2 Hyperlipidemia Mixed MD Jose 790.6 Abnormal Blood Chemistry Other Office Visit 01/22/2008 7:30a Jose Najera V70.0 Exam ( Adult) General Medical Routine AT Health Care Facility 272.2 Hyperlipidemia Mixed V76.44 Screening For Malig Erick Prostate V76.51 Special Screening For Malignant Neoplasms Colon 401.1 Hypertension Benign 296.32 Depressive Disorder Major Recurrent Moderate 278.01 Obesity Morbid 786.50 Pain Chest Unspec 780.79 Malaise And Fatigue Other Office Visit 02/13/2007 2:30p Philippe Mims, 401.1 Hypertension Benign MD Jose 724.3 Sciatica 790.6 Abnormal Blood Chemistry Other 592.0 Calculus Of Kidney Office Visit 01/16/2007 7:30a Jose Najera V70.0 Exam ( Adult) General Medical Routine AT Health Care Facility 401.1 Hypertension Benign 272.2 Hyperlipidemia Mixed V76.44 Screening For Malig Erick Prostate V76.51 Special Screening For Malignant Neoplasms Colon Office Visit 10/31/2006 9:50a Philippe Mims, 401.1 Hypertension Benign MD Jose 790.6 Abnormal Blood Chemistry Other Office Visit 10/17/2006 3:50p Jose Najera, 578.1 Blood In Stool MD Cole Office Visit 05/16/2006 3:40p Jose Najera, 786.50 Pain Chest Unspec MD Office Visit 12/21/2004 7:30a Jose Najera, V70.0 Exam ( Adult) MD General Medical Routine AT Health Care Facility 401.1 Hypertension Benign V76.44 Screening For Malig Erick Prostate V76.51 Special Screening For Malignant Neoplasms Colon 272.2 Hyperlipidemia Mixed 786.59 Pain Chest Other Office Visit 12/13/2004 3:10p Jose Najera MD 785.1 Palpitations 786.59 Pain Chest Other Office Visit 09/14/2003 1:10p Jose Najera, 847.2 Sprains & Strains Lumbar Office Visit 08/28/2003 8:40a Jose Najera, 724.3 Sciatica MD Office Visit 08/14/2003 10:40a Jose Najera, 847.2 Sprains & Strains Lumbar Office Visit 07/13/2003 1:40p Jose Najera, 847.2 Sprains & Strains Lumbar Office Visit 11/20/2002 4:40p Philippe Mims, 786.2 Cough MD Edwina 465.9 URI Upper Respiratory Infections Acute Unspec Sites Office Visit 06/18/2002 2:10p Jose Najera MD 724.3 Sciatica 681.11 Onychia & Paronychia Toe 117.9 Mycoses Other & Unspec 847.2 Sprains & Strains Lumbar Office Visit 04/10/2002 3:50p Philippe Mims, 386.30 Labyrinthitis MD Edwina Unspec 386.35 Labyrinthitis Viral 796.2 Blood Pressure Reading Elevated W/O Hypertension Office Visit 06/21/2001 2:10p Jose Najera MD Office Visit 10/23/2000 1:20p Jose Najera MD Plan of Treatment Future Appointment(s):04/04/2019 2:20 pm - Bayron Ashley MD at [facility]02/27/2019 3:30 pm - Josias Skelton MD at Josias Skelton MD2018 8:20 am - Jose Don MD at [facility]02/11/2019 - Jose Don MDI10 Essential (primary) picighcpvejnR20.9 Obesity, qvktzpdkyekI53.00 Pure hypercholesterolemia, hfhopqmfuilE39.35 Body mass index (BMI) 35.0-35.9, snjyoJ75.9 Type 2 diabetes mellitus without complicationsFollow up:rtc 3 mo ohwsjnxuG40.5 Presence of coronary angioplasty implant and graft
[2019-02-19 13:38] LABS: ABS Eosinophils 0.2 10^3/ul (0-0.6); ABS Lymphocytes 1.7 10^3/ul (1.0-4.8); ABS Monocytes 0.6 10^3/ul (0-0.8); ABS Neutrophils 4.5 10^3/ul (1.5-7.7); Eosinophil % 2.6 %; Hematocrit 40 % (42-52); Hemoglobin 13.7 g/dL (14.0-18.0); Mean Corpuscular HGB Conc 34 g/dL (31-36); Mean Corpuscular Hemoglobin 30 pg (27-31); Mean Corpuscular Volume 87 fL (80-94); Mean Platelet Volume 7.1 fL (7.4-10.4); Platelet Count 199 10^3/uL (150-450); Red Blood Count 4.59 10^6 /uL (4.18-5.48); Red Cell Distribution Width 14 % (10.5-15); White Blood Count 6.9 10^3/uL (3.5-10.8)
[2019-02-19 13:49] LABS: Activated Partial Thrombo Time 30.7 seconds (26.0-36.3); INR 1.07 (0.82-1.09)
[2019-02-19 13:53] LABS: Albumin 4.5 g/dL (3.2-5.2); BUN/Creatinine Ratio 23.5 (8-20); Calcium 9.6 mg/dL (8.6-10.3); EGFR African American 115.7 (>60); EGFR Non-African American 95.6 (>60); Globulin 2.3 g/dL (2-4); Magnesium 2.2 mg/dL (1.9-2.7); Potassium 4.3 mmol/L (3.5-5.0); Total Protein 6.8 g/dL (6.4-8.9)
[2019-02-19] MEDS ORDERED: Acetaminophen TAB* 325 MG PO PRN (14:25)
[2019-02-19] MEDS ORDERED: Ondansetron INJ* 2 MG/ML VIAL IV PRN (14:25)
[2019-02-19] MEDS ORDERED: Al Hydrox/Mg Hydrox/Simet LIQ* 30 ML UDC PO PRN (14:25)
[2019-02-19] MEDS ORDERED: Aspirin TAB* 325 MG PO ONE (14:35)
[2019-02-19] MEDS ORDERED: Dextrose 50% Syringe 50 ML* 25 GM/50 ML SYRINGE IV PUSH PRN (14:41)
[2019-02-19] MEDS ORDERED: Enoxaparin(*) 40 MG/0.4 ML SYR SUBCUT SCH (15:00)
--- NOTE | 2019-02-19 16:35 | HP ---
CC: Dr. Dick Don; Dr. Ashley* HISTORY AND PHYSICAL: DATE OF ADMISSION: 02/19/19 ATTENDING PHYSICIAN: Dr. Emilie Buckley* (dictated by SERGIO Cota). PRIMARY CARE PROVIDER: Dr. Dick Don. FAMILY CASEWORKER: Dr. Ashley. CHIEF COMPLAINT: Two episodes of chest pain with exertion. HISTORY OF PRESENT ILLNESS: Ronak Crocker is a 64-year-old white male with past medical history significant for coronary artery disease, status post 4 stents in September 2018, hypertension, hyperglycemia, anxiety, glaucoma and history of nephrolithiasis, who presented to the emergency room via EMS after experiencing 2 episodes of self resolved chest pain at work. 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 This episode resolved after 10 to 15 seconds and did not have associated symptoms. Then, when he was mowing downhill , again experienced an identical central chest pain that lasted 10 to 15 seconds and resolved on its own. The patient has been going to cardio rehab and is status post 4 stents, two of which are in the LAD September [address] Boone at [facility]. He has not been experiencing exertional chest pain at cardio rehab. His prior anginal symptoms in 2018 included chest pain with radiation to left shoulder. Today, the patient is chest pain free at time of evaluation. During his episode of chest pain, he did not experience any radiation of the pain to his arm, shoulder, neck, or jaw. Nor did he experience nausea, vomiting, dyspnea, headache, visual changes, dizziness, or abdominal pain. The patient received 325 mg aspirin from EMS. EMERGENCY DEPARTMENT COURSE: When the patient arrived in the emergency department, his vital signs were temperature of 98, pulse of 65, respiratory rate of 18, O2 sat 100, blood pressure 144/80. Troponin of 0.00 x1. He did not receive any medications in the emergency department. The hospitalists were then asked to evaluate the patient for admission. PAST MEDICAL HISTORY: 1. Coronary artery disease, status post 4 stents in September [address] Boone at [facility]. 2. Hypertension. 3. Hyperglycemia. 4. Anxiety. 5. Glaucoma. 6. Nephrolithiasis. PAST SURGICAL HISTORY: 1. Status post gastric sleeve in 2016. 2. Cholecystectomy. 3. Right knee surgery. 4. Glaucoma surgery. 5. Status post 4 stents, 2 in LAD. HOME MEDICATIONS: 1. Aspirin 81 mg daily. 2. Amlodipine 5 mg p.o. daily. 3. Plavix 75 mg p.o. daily. 4. Glimepiride 1 mg p.o. daily. 5. Citalopram 20 mg p.o. daily. 6. Metoprolol succinate 25 mg p.o. daily. 7. Losartan 25 mg p.o. daily. 8. Lipitor 40 mg p.o. daily. ALLERGIES: No known drug allergies. FAMILY HISTORY: Mother with hypertension, is living at age 93. Father had hypertension, at age 88 due to dementia. SOCIAL HISTORY: The patient is . 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 He lives in [place] with his . He has never smoked and does not use drugs. He drinks 1 alcoholic beverage per week. Should he need a surrogate medical decision maker, that would be his , Fanta Crocker, whose phone number is [phone]. REVIEW OF SYSTEMS: An 11-point review of systems was completed and all pertinent positives and negatives are above in the HPI. All other systems are negative. PHYSICAL EXAMINATION GENERAL: Obese white male, lying upright in the hospital stretcher, appearing in no acute distress. HEENT: Head: Normocephalic, atraumatic. Eyes: PERRL. EOMI. Sclerae anicteric. ENT: Mucous membranes moist. NECK: No JVD. Neck is supple. RESPIRATORY: Lungs are clear to auscultation throughout. Chest expansion is symmetrical with respirations. CARDIO: Regular rate and rhythm without murmurs, rubs, or gallops. ABDOMEN: Normoactive bowel sounds x3. Abdomen is soft, nontender and nondistended. No masses or hepatomegaly palpated. EXTREMITIES: No edema, cyanosis, or clubbing. NEURO: The patient is alert and oriented x3. Strength is 5/5 in all extremities. PSYCH: The patient is pleasant and cooperative. DIAGNOSTIC STUDIES/LAB DATA: EKG on 03/01/19, normal sinus rhythm, rate is 49 beats per minute. No T-wave inversions. No ST elevations or depressions. Overall, similar to EKG from 10/02/08. White blood cell 6.9, red blood cell 4.59, hemoglobin 13.7, hematocrit 40, platelet 199. INR 1.07. Sodium 138, potassium 4.3, chloride 104, carbon dioxide 29, anion gap 5, BUN 19, creatinine 0.81, glucose 91, lactic acid 0.7, calcium 9.6, magnesium 2.2. Troponin 0.00 x1, BNP 29. ASSESSMENT AND PLAN: Ronak Crocker is a 64-year-old white male with past medical history significant for coronary artery disease, status post PCI in September 2018, hypertension, hyperglycemia, anxiety, glaucoma, who presents with 2 episodes of self resolved, central chest pain with exertion. The patient will be admitted in observation for: 1. Chest pain, rule out acute coronary syndrome. Due to the patient's prior history of coronary artery disease, acute coronary syndrome must be ruled out. Negative troponin thus far. We will continue to trend. EKG appears normal. The patient has received aspirin load. His home aspirin, Lipitor, losartan, metoprolol, and Plavix will be continued. He will have a stress test in the morning. He is admitted on telemetry. Chest x-ray has been ordered. The patient has not been experiencing exertional chest pain previous to this episode and his chest pain that he experienced today is not similar to his previous anginal symptoms, which did include radiation to left shoulder. Placed order for obtaining records from [facility] for further information regarding prior PCI. Fasting LDL will be ordered for the morning. It is possible that this pain was musculoskeletal due to exertion with lawn mowing, but as previously mentioned, the patient's history of recent stents requires ACS rule out. 2. Bradycardia. The patient had bradycardia on EKG, this is likely consistent with the patient being on a beta-alfredo. We will continue to monitor on telemetry. The patient is not symptomatic of this. 3. Hyperglycemia. The patient reports that he has not been diagnosed with diabetes, but rather borderline hyperglycemia. He takes glimepiride at home. We will hold this home medication during his stay and start him on lispro sliding scale and continue to monitor. A1c will be checked in the morning. 4. Hypertension. The patient has been normotensive in the emergency department. We will continue his home losartan and amlodipine and continue to monitor. 5. Anxiety. The patient takes citalopram at home and we will continue. 6. DVT prophylaxis. The patient has a DVT risk score of 3 and he will receive Lovenox 30 mg daily. 7. Code status: The patient is full code. 8. FEN. Electrolytes are within normal limits and IV fluids are not needed. The patient will receive a heart-healthy diet without caffeine and n.p.o. after midnight for stress test tomorrow. TIME SPENT: Approximately 50 minutes was spent on this admission, approximately half this time was spent at bedside. This case has been reviewed by my attending, Dr. Emilie Buckley, and she agrees with this plan of care. SERGIO COTA [id number]/[facility] #: [id number] LILY
[2019-02-19] MEDS: Insulin LISPRO* 1 UNITS UNIT SUBCUT SCH ×2 (17:10→21:31)
[2019-02-19] MEDS: Losartan TAB* 25 MG PO SCH (17:47)
[2019-02-19] MEDS: Atorvastatin* 40 MG TAB PO SCH (17:47)
[2019-02-19] MEDS: Enoxaparin(*) 40 MG/0.4 ML SYR SUBCUT SCH (17:48)
[2019-02-20 06:30] LABS: ABS Eosinophils 0.2 10^3/ul (0-0.6); ABS Lymphocytes 1.4 10^3/ul (1.0-4.8); ABS Monocytes 0.6 10^3/ul (0-0.8); ABS Neutrophils 4.2 10^3/ul (1.5-7.7); Eosinophil % 2.9 %; Hematocrit 42 % (42-52); Hemoglobin 14.2 g/dL (14.0-18.0); Lymphocyte % 22.3 %; Mean Corpuscular HGB Conc 34 g/dL (31-36); Mean Corpuscular Hemoglobin 30 pg (27-31); Mean Corpuscular Volume 88 fL (80-94); Nucleated Red Blood Cells % 0.1; Platelet Count 184 10^3/uL (150-450); Red Blood Count 4.79 10^6 /uL (4.18-5.48); Red Cell Distribution Width 14 % (10.5-15); White Blood Count 6.4 10^3/uL (3.5-10.8)
[2019-02-20 06:47] LABS: BUN/Creatinine Ratio 17.7 (8-20); Calcium 9.4 mg/dL (8.6-10.3); EGFR African American 119.1 (>60); EGFR Non-African American 98.4 (>60); Potassium 4.5 mmol/L (3.5-5.0)
[2019-02-20] MEDS: Insulin LISPRO* 1 UNITS UNIT SUBCUT SCH ×4 (07:28→21:49)
[2019-02-20 08:08] LABS: HDL Cholesterol 32.3 mg/dL
--- NOTE | 2019-02-20 15:11 | PN ---
Subjective Date of Service: 02/20/19 Interval History: Patient has been chest pain free since episodes that brought him to the ED yesterday. Denies dyspnea, tachycardia, dizziness, abd pain, nausea, vomiting, shoulder pain. No complaints at time of evaluation. Objective Active Medications: Acetaminophen (Tylenol Tab*) 650 mg PO Q4H PRN PRN Reason: FEVER/PAIN Al Hydrox/Mg Hydrox/Simethicone (Maalox Plus*) 30 ml PO Q6H PRN PRN Reason: INDIGESTION Amlodipine Besylate (Norvasc Tab*) 5 mg PO QAM [facility] Aspirin (Aspirin Ec Tab*) 81 mg PO QAM [facility] Atorvastatin Calcium (Lipitor*) 40 mg PO QPM [facility] Last Admin: 02/19/19 17:47 Dose: 40 mg Citalopram Hydrobromide (Celexa Tab*) 20 mg PO QAM [facility] Clopidogrel Bisulfate (Plavix Tab*) 75 mg PO QAM [facility] Dextrose (D50w Syringe 50 Ml*) 12.5 gm IV PUSH .FOR FS < 60 - SS PRN PRN Reason: FS < 60 Enoxaparin Sodium (Lovenox(*)) 40 mg SUBCUT DAILY@1800 [facility] Last Admin: 02/19/19 17:48 Dose: 40 mg Insulin Human Lispro (Humalog*) 0 units SUBCUT [facility]; Protocol Last Admin: 02/20/19 07:28 Dose: Not Given Losartan Potassium (Cozaar Tab*) 25 mg PO QPM [facility] Last Admin: 02/19/19 17:47 Dose: 25 mg Metoprolol Succinate (Toprol Xl Tab*) 25 mg PO QAM [facility] Ondansetron HCl (Zofran Inj*) 4 mg IV Q4H PRN PRN Reason: NAUSEA/VOMITING Vital Signs - 8 hr 02/20/19 02/20/19 02/20/19 07:36 08:20 13:06 Temperature 97.8 F 97.9 F 97.8 F Pulse Rate 57 50 56 Respiratory 16 16 16 Rate Blood Pressure 129/60 130/69 134/68 (mmHg) O2 Sat by Pulse 95 100 99 Oximetry Oxygen Devices in Use Now: None Appearance: Obese, white male, laying upright in hospital bed, appearing comfortable and in NAD Eyes: No Scleral Icterus, PERRLA Ears/Nose/Mouth/Throat: Mucous Membranes Moist Neck: NL Appearance and Movements; NL JVP Respiratory: Symmetrical Chest Expansion and Respiratory Effort, Clear to Auscultation Cardiovascular: NL Sounds; No Murmurs; No JVD, RRR Abdominal: NL Sounds; No Tenderness; No Distention, No Hepatosplenomegaly Extremities: No Edema, No Clubbing, Cyanosis, - - Neg calf tenderness bilaterally Skin: No Rash or Ulcers Neurological: Alert and Oriented x 3, NL Muscle Strength and Tone Result Diagrams: 02/20/19 06:00 02/20/19 06:00 Assess/Plan/Problems-Billing Assessment: 64 yo white male with PMHx CAD s/p 4 stents in Sep 2018 at [facility], hyperglycemia, HTN, anxiety, glaucoma, and hx nephrolithiasis presents to the ED via EMS when he experienced 2 episodes of self-resolved chest pain with moving the lawn at work which lasted 10-15 seconds each. Patient admitted for stress test to rule out ACS. - Patient Problems (1) Chest pain Code(s): R07.9 - CHEST PAIN, UNSPECIFIED SNOMED Code(s): 06849865 Comment: -patient experienced chest pain while mowing lawn uphill which occurred in two self-resolving episodes which lasted <15 seconds -pt has been chest pain free since these episodes -troponins negative x 3 -EKG without evidence of ischemia -patient s/p 4 stents in September 2018 at [facility], 2 stents were in LAD ; in process of receiving records -stress test read per radiology was intermediate risk with anterior ischemia; read per cardiology was low risk -Cardiology consulted given difference in stress test reads and recent stents 5 months ago without records -plan for catheterization tomorrow with Dr. Snell; NPO after midnight (2) CAD (coronary artery disease) Code(s): I25.10 - ATHSCL HEART DISEASE OF [place] CORONARY ARTERY W/O ANG PCTRS SNOMED Code(s): 66995890 Comment: -s/p 4 stents in Sep 2018 as described above -patient has been attending cardio rehab and has not experienced exertional chest pain in rehab nor otherwise since the procedure -continue home metoprolol, plavix, lipitor, aspirin, losartan, amlodipine -continue heart healthy diet without caffeine -Lipid panel demonstrates good LDL and TG control -HA1c good (3) Hypertension Code(s): I10 - ESSENTIAL (PRIMARY) HYPERTENSION SNOMED Code(s): 50061622 Comment: -patient has been normotensive -continue amlodipine, metoprolol, and losartan (4) Hyperglycemia Code(s): R73.9 - HYPERGLYCEMIA, UNSPECIFIED SNOMED Code(s): 24407508 Comment: -holding home glimepiride -continue SS lispro -HA1c = 5.8 (5) Anxiety Code(s): F41.9 - ANXIETY DISORDER, UNSPECIFIED SNOMED Code(s): 50164267 Comment: -continue home citalopram (6) DVT prophylaxis Code(s): Z29.9 - ENCOUNTER FOR PROPHYLACTIC MEASURES, UNSPECIFIED SNOMED Code( s): 026799191 Comment: -continue lovenox 40 mg (7) Full code status Code(s): Z78.9 - OTHER SPECIFIED HEALTH STATUS SNOMED Code(s): 035822863
--- NOTE | 2019-02-20 17:26 | CONS ---
CC: Hospitalist Service; Dr. Chan CARDIOLOGY CONSULT: DATE OF CONSULT: 02/20/19 HISTORY OF PRESENT ILLNESS: I was asked by hospitalist service to see this 64- year- old male patient, who was admitted with symptoms of chest pain on exertion. The patient does follow up in [facility]. He does have a known history of coronary artery disease. In September 2018, he had angioplasty and stenting x4 stents. Full detailed information not available, but least 2 of the stents were in the LAD. That was not in the setting of myocardial infarction. At that time, he had symptoms of chest pain and had abnormal stress test according to the patient. He goes to cardiac rehab. He has been doing well. 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 He was pushing the mower when he experienced exertional chest pain for about 15 seconds. He had to stop and the pain did go away. That was uphill, then it did happen downhill. He was brought into the emergency room. He was ruled out for myocardial infarction by negative troponins. He had a nuclear Myoview stress test. His stress part was unclear. His nuclear part showed moderate reversible ischemia of the anterior wall. Cardiology consult was further requested. The patient gives no nausea, no vomiting, no hematochezia, no abdominal pain, no syncope, no palpitations, no tachycardia, no orthopnea, no fever, no chills, no skin rash, no tremors, and no hematemesis is appreciated. PAST MEDICAL HISTORY: Includes coronary artery disease, stenting x4, September 2018 at [facility]; systemic arterial hypertension; hyperglycemia; anxiety , and kidney stones. PAST SURGICAL HISTORY: Includes gastric sleeve in 2016, cholecystectomy, right knee surgery, glaucoma surgery. MEDICATIONS: As an outpatient include: 1. Aspirin 81 mg daily. 2. Amlodipine 5 mg daily. 3. Plavix 75 mg daily. 4. Glimepiride 1 mg daily. 5. Metoprolol 25 mg daily. 6. Losartan 25 mg daily. 7. Lipitor 40 mg daily. His medications as an inpatient include: 1. Tylenol 650 mg p.o. q.4 hours p.r.n. 2. Maalox 30 cc p.o. q.6 hours. 3. Norvasc 5 mg daily. 4. Aspirin 81 mg daily. 5. Lipitor 40 mg daily. 6. Celexa 20 mg in the morning. 7. Plavix 75 mg daily. 8. Lovenox 40 mg subcu daily. 9. Losartan 25 mg daily. 10. Insulin according to his blood sugar. 11. Metoprolol 25 mg daily. ALLERGIES: No known drug allergies. FAMILY HISTORY: There is no family history of premature CAD. SOCIAL HISTORY: He lives in [place] with his . No history of smoking. No significant drinking alcohol. No history of illicit drug use. REVIEW OF SYSTEMS: His review of all other systems essentially is negative. PHYSICAL EXAM: On exam, he is awake, alert, and oriented. He is not in acute distress. He is chest pain free. His vitals: Blood pressure is 125/70; pulse is 65, in sinus rhythm; he is afebrile. Head and Neck Exam: Normocephalic, atraumatic head. Ears, Nose, and Throat: Essentially benign. Neck: Supple. JVP is not elevated. No carotid bruits. No masses in the neck are appreciated. Chest: Clear to auscultation. No rales, no wheeze. No added sounds appreciated. Heart: Normal S1, S2. No added sounds. No gallops, no rubs. Abdomen: Benign, soft. Positive bowel sounds. Extremities: No edema, no cyanosis, no clubbing. Skin exam is normal. Psych: Normal affect and mood. ECHOCARDIOGRAPHY RADIOLOGY TECHNOLOGIST: No focal deficits appreciated. DIAGNOSTIC STUDIES/LAB DATA: His labs showed the following: White blood cell 6.4, hemoglobin 14.2, hematocrit 42, platelets 184. Chemistry showed troponins 0 x3. Triglycerides 74, cholesterol 86, LDL 39, HDL 32. Sodium 138, potassium 4.5, chloride 105, total CO2 30, BUN 14, creatinine 0.79. His chest x-ray was reported to have COPD. His EKG: Normal sinus rhythm, poor R-wave progression, nonspecific T abnormality. IMPRESSION: The patient is a 64-year-old male patient with: 1. Known history of coronary artery disease, status post angioplasty and stenting, 4 stents, 2 to the LAD at [facility], September 2018. 2. Concerning exertional symptoms of chest pain. He was ruled out for myocardial infarction. 3. Abnormal nuclear stress test, moderate risk with moderate reversible ischemia of the anterior wall. 4. Obesity with gastric sleeve surgery. 5. Systemic arterial hypertension. 6. Hyperlipidemia. 7. Diabetes mellitus, on medical treatment. PLAN: I had a lengthy talk with the patient about his symptoms. He is already on aspirin, Plavix. He said he takes his medications very regularly. He is on beta- alfredo and he is on calcium channel alfredo. At the present time, I discussed false positive, false negative nuclear stress test. I discussed his comorbidities and also his symptoms. At the present time, will proceed with a cardiac catheterization to evaluate his coronary anatomy and the status of his coronary stents for definite answer given his moderate reversible ischemia of the anterior wall. I answered all his concerns and questions up to his satisfaction. He said he needs to discuss this further with his and let us know. He remains chest pain free since his hospitalization. Continue current medications as you are already doing. [id number]/[facility] #: [id number] LILY
[2019-02-20] MEDS ORDERED: Diazepam TAB(*) 5 MG PO PRN (18:11)
[2019-02-20] MEDS ORDERED: diPHENhydraMINE PO* 25 MG PO PRN (18:11)
[2019-02-20] MEDS: Losartan TAB* 25 MG PO SCH (18:18)
[2019-02-20] MEDS: Clopidogrel TAB* 75 MG PO SCH (18:19)
[2019-02-20] MEDS: Atorvastatin* 40 MG TAB PO SCH (18:19)
[2019-02-20] MEDS: amLODIPine TAB* 5 MG PO SCH (18:19)
[2019-02-20] MEDS: Aspirin EC TAB* 81 MG TAB.EC PO SCH (18:20)
[2019-02-20] MEDS: Citalopram TAB* 20 MG PO SCH (18:20)
[2019-02-20] MEDS: Enoxaparin(*) 40 MG/0.4 ML SYR SUBCUT SCH (18:20)
[2019-02-20] MEDS: Metoprolol Succinate XL TAB* 25 MG PO SCH (18:31)
[2019-02-21] MEDS ORDERED: NS 0.9% 1000 ML** 1,000 ML IV SCH ×2 (06:00→10:30)
[2019-02-21 06:52] LABS: ABS Eosinophils 0.1 10^3/ul (0-0.6); ABS Lymphocytes 1.5 10^3/ul (1.0-4.8); ABS Monocytes 0.5 10^3/ul (0-0.8); ABS Neutrophils 3.6 10^3/ul (1.5-7.7); Hematocrit 42 % (42-52); Hemoglobin 14.3 g/dL (14.0-18.0); Lymphocyte % 25.4 %; Mean Corpuscular HGB Conc 34 g/dL (31-36); Mean Corpuscular Hemoglobin 30 pg (27-31); Mean Corpuscular Volume 87 fL (80-94); Mean Platelet Volume 7.4 fL (7.4-10.4); Platelet Count 178 10^3/uL (150-450); Red Blood Count 4.78 10^6 /uL (4.18-5.48); Red Cell Distribution Width 14 % (10.5-15); White Blood Count 5.8 10^3/uL (3.5-10.8)
[2019-02-21 07:03] LABS: Calcium 9.3 mg/dL (8.6-10.3); EGFR African American 103.8 (>60); EGFR Non-African American 85.8 (>60); Potassium 4.1 mmol/L (3.5-5.0)
[2019-02-21] MEDS: Metoprolol Succinate XL TAB* 25 MG PO SCH (08:08)
[2019-02-21] MEDS: Insulin LISPRO* 1 UNITS UNIT SUBCUT SCH ×2 (08:08→15:23)
[2019-02-21] MEDS: Aspirin EC TAB* 81 MG TAB.EC PO SCH (08:08)
[2019-02-21] MEDS: Citalopram TAB* 20 MG PO SCH (08:08)
[2019-02-21] MEDS: amLODIPine TAB* 5 MG PO SCH (08:08)
[2019-02-21] MEDS: Clopidogrel TAB* 75 MG PO SCH (08:08)
[2019-02-21] MEDS ORDERED: Midazolam* 1 MG/ML 5 ML VIAL (5 MG) ONE (08:59)
[2019-02-21] MEDS ORDERED: Heparin(*) 1000 UNIT/ML 10 ML VIAL CATH LAB IV ONE (08:59)
[2019-02-21] MEDS ORDERED: fentaNYL* 50 MCG/ML 2 ML VIAL (100 MCG VIAL) ONE (08:59)
[2019-02-21] MEDS ORDERED: VERAPAMIL 2.5 MG/ML 2 ML VIAL ** 5 mg/2 ml ONE (08:59)
[2019-02-21] MEDS ORDERED: nitroGLYCERIN DRIP* 25,000 MCG/250 ML BTL ONE (09:00)
[2019-02-21] MEDS ORDERED: Lidocaine 1% INJ* 10 MG/ML 30 ML SDV ONE (09:00)
[2019-02-21] MEDS ORDERED: Heparin 2 UNITS/ML IVPREMIX* 3,000 UNIT/1,500 ML BAG IV ONE (09:00)
[2019-02-21] MEDS ORDERED: Iohexol 350 (CONTRAST) 200 ML MDV IV ONE ×2 (09:00→10:07)
[2019-02-21] MEDS ORDERED: diPHENhydraMINE PO* 25 MG ONE (09:25)
[2019-02-21] MEDS ORDERED: Diazepam TAB(*) 5 MG ONE (09:26)
--- NOTE | 2019-02-21 12:06 | CATH ---
CC: Dr. Bayron Ashley in [place], [place]; Jose Don MD* CARDIAC CATHETERIZATION REPORT: DATE OF PROCEDURE: 02/21/19 REASON FOR THE CARDIAC CATHETERIZATION: Asked by Dr. Chan, credit charge authorizer, who saw the patient in consultation to perform a diagnostic cardiac catheterization in light of abnormal nuclear reading of stress test with report saying moderate area of ischemia to the anterior wall with a history of prior stents to the left anterior descending artery. PROCEDURE: Coronary arteriography. CONSENT: The patient was interviewed and examined on the floor of the hospital where the risks and benefits were explained. He understood them and wished to proceed. PRECARDIAC CATHETERIZATION LABORATORY RESULTS: Hemoglobin and hematocrit of 14.3 and 42, platelet count of 178,000, BUN and creatinine of 16 and 0.89. Sodium 138, potassium 4.1, chloride 105, bicarb 28. EQUIPMENT UTILIZED: 1. Right radial artery sheath: A 6-[place] Glidesheath Slender. 2. Diagnostic coronary artery catheter: A 5-[place] TIG4 curve catheter. 3. Diagnostic guidewire: A 260 length Goncalves fixed core J-wire. 4. Closure device utilized: A Vasc Band by [facility] [employer]. MEDICATIONS GIVEN: Radial artery cocktail of 5000 units of heparin, 300 mcg of nitroglycerin, and 3 mg of verapamil were given. Xylocaine 1% for local anesthesia was given to the area. The patient received 25 mg of Benadryl and 2.5 mg of Valium for sedation. PROCEDURE IN DETAIL: The patient was brought to the cardiovascular laboratory where a formal time-out was performed. He was prepped and draped in the sterile fashion. The right radial artery area was anesthetized with 1% lidocaine and under right radial artery ultrasound guidance, the right radial artery was cannulated and a sheath was placed. Coronary arteriography was performed utilizing the TIG4 catheter. Following this, the catheter and sheath were removed and hemostasis was obtained with a Vasc Band. The reverse Barbeau was an A to B. The total contrast used was 50 cc of Omnipaque dye. The radiation exposure included 1.9 minutes of fluoro time. The air kerma radiation was 721 mGy. The DAP radiation was 4407 microgray/meter squared. RESULTS: CORONARY ARTERIOGRAPHY: A. Left coronary artery: 1. Left main - widely patent. 2. Left anterior descending artery - the left anterior descending artery had minimal luminal irregularities seen just after the proximal stent after the first septal jewel hole finish opener with no significant degree of obstruction noted. The stent was widely patent in the proximal portion. The mid stent as well was widely patent. There was minimal luminal irregularity in the stented area, but no significant in- stent restenosis seen. The vessel traversed at the apical region. No significant obstruction noted to the diagonal branches. 3. Circumflex artery. The circumflex artery was a nondominant vessel supplying a thin first and second obtuse marginal branch with a medium sized mid obtuse marginal branch and ending in a low line posterior left ventricular branch. The prior stent placed in the distal circumflex into the lower posterior left ventricular branch showed no evidence of any in-stent restenosis. Of note, there was mild luminal irregularity with a mild narrowing of 10% to 15% in the mid part of the stent compared to the other parts of the stent. B. Right coronary artery: A dominant vessel supplying multiple acute marginal branches, the PDA, and 2 posterior left ventricular branches. There were mild luminal irregularities seen throughout the course of the right coronary artery. The proximal portion had approximately a 20% to 25% followed by a 35% narrowing just past a moderate-sized acute marginal branch in the mid segment with another area of 25% narrowing. No significant disease was seen through the right coronary artery. OVERALL ASSESSMENT: Patent stents with no evidence of in-stent restenosis. No significant disease throughout any other of the coronary artery vessels. This information was shared with Dr. Chan, the patient's primary credit charge authorizer in the hospital. We will set up a wound check for the patient in 1 week from now, and the patient will be following up with his primary credit charge authorizer, Dr. Ashley in [facility]. [id number]/[facility] #: [id number] [facility]
[2019-02-21 15:46] VITALS: BP 125/55
== END 2019-02-21 17:00 | disposition home or self-care (01) ==
LOC: ED 12:55 → MEDTELE 14:25
PROVIDERS: ADMIT Internal Medicine; ATTEND Internal Medicine
DX: R07.9 Chest pain, unspecified (principal); I25.10 Atherosclerotic heart disease of native coronary artery without angina pectoris; I10 Essential (primary) hypertension; R73.9 Hyperglycemia, unspecified; F41.9 Anxiety disorder, unspecified; Z79.82 Long term (current) use of aspirin; Z87.442 Personal history of urinary calculi; Z95.5 Presence of coronary angioplasty implant and graft; H40.9 Unspecified glaucoma; E66.9 Obesity, unspecified; Z98.84 Bariatric surgery status; E78.5 Hyperlipidemia, unspecified; E11.9 Type 2 diabetes mellitus without complications; Z79.4 Long term (current) use of insulin
CPT/HCPCS: 36415; 71045; 71046; 78452; 80048; 80053; 80061; 83036; 83605; 83735; 83880; 84484; 85025; 85610; 85730; 93005; 93017; 93454; 96372; 99284; A9270-GY; A9502; C1769; G0378; J1644; J1650; J2250; J3010